=== PATIENT | female | born 1950 | race African-American/Black ===

== ENCOUNTER 2017-05-21 13:26 | Inpatient (IN) | payer MEDICARE, MEDICAID ==
[~2017-05-21] VITALS: Ht 160 cm; Wt 127.6 kg
[~2017-05-21 13:26] MED LIST: ACET325C PO; ALEN70TA3 PO; APIX5TAB PO; ASPI-1158 PO; ATROV INH; CHOL400T15 PO; DIGL PO; DOCU-138 PO; FLUT1DIS3 INH; FURO80TA3 PO; HYDR-523 PO; MOME13HF2 INH; NOVOLIN SUBCUT; RANI150T7 PO
[2017-05-21] MEDS ORDERED: GABA-290 PO (13:43)
[2017-05-21] MEDS ORDERED: ZOLP5TAB8 PO (13:43)
[2017-05-21] MEDS ORDERED: CARV12.545 PO (13:43)
[2017-05-21] MEDS ORDERED: APIX5TAB PO (13:43)
[2017-05-21] MEDS: IBUPROFEN 600MG TABLET PO ONE ×2 (14:56→15:19)
[2017-05-21] MEDS ORDERED: ACETAMINOPHEN 325MG TABLET PO ONE (15:15)
[2017-05-21 16:32] LABS: BASOPHILS % 0.4 % (0.0-2.0); EOSINOPHILS % 4.3 % (0.0-5.0); LYMPHOCYTES % 11.3 % (20.0-50.0); MEAN CORPUSCULAR HEMOGLOBIN 26.5 pg (28.0-32.0); MEAN CORPUSCULAR VOLUME 83.2 fL (81.0-99.0); MEAN PLATELET VOLUME 7.3 fl (7.4-10.4); MONOCYTES % 4.9 % (2.0-8.0); NEUTROPHILS % 79.1 % (40.0-76.0); PLATELET 310 x1000/uL (130-400); RED BLOOD CELL COUNT 2.19 mill/uL (4.2-5.4); RED CELL DISTRIBUTION WIDTH 14.6 % (11.6-14.6)
[2017-05-21 16:38] LABS: HEMATOCRIT. 18.2 % (36.0-48.0); HEMOGLOBIN. 5.8 g/dL (12.0-16.0); PROTHROMBIN TIME 10.7 sec (9.4-11.6)
[2017-05-21] MEDS ORDERED: SODIUM CHLORIDE 0.9% 1,000 ML IV ONE (17:40)
[2017-05-21] MEDS ORDERED: SODIUM CHLORIDE 0.9% 1,000 ML IV SCH (17:40)
[2017-05-21] MEDS ORDERED: ACETAMINOPHEN 325MG TABLET PO PRN ×2 (17:45→23:45)
[2017-05-21] MEDS ORDERED: IBUPROFEN 600MG TABLET PO PRN (17:45)
[2017-05-21 21:30] VITALS: BP 145/44
[2017-05-21 21:40] VITALS: BP 145/44
[2017-05-21] MEDS ORDERED: KDUR20 PO (22:33)
[2017-05-21] MEDS ORDERED: INSU100I28 SQ (22:33)
[2017-05-21] MEDS ORDERED: DEXTROSE 50% WATER 50ML SYRINGE IV PRN (23:15)
[2017-05-21] MEDS ORDERED: CLONIDINE 0.1MG TABLET PO PRN (23:15)
[2017-05-21] MEDS ORDERED: IPRATROPIUM/ALBUTEROL 0.5-3(2.5)MG/3ML NEB HHN PRN (23:15)
[2017-05-21] MEDS ORDERED: ACETAMINOPHEN 325 MG PO PRN (23:30)
[2017-05-21] MEDS: HYDROCODONE/ACETAMINOPHEN 5/325MG TABLET PO PRN (23:53)
[2017-05-22] VITALS (15 sets, daily range): BP systolic 100–139; BP diastolic 41–57
[2017-05-22] MEDS: ZOLPIDEM TARTRATE 5MG TABLET PO PRN (00:53)
[2017-05-22] MEDS: MORPHINE SULFATE 4 MG/ML CPJ (NOT FOR IM USE) IV PRN (04:34)
[2017-05-22] MEDS: INSULIN LISPRO 100 UNITS/ML SUBCUT SCH ×4 (06:43→21:23)
[2017-05-22] MEDS: BLOOD SUGAR DIAGNOSTIC STRIP TEST SCH ×4 (06:43→20:27)
[2017-05-22] MEDS: FUROSEMIDE 80MG TABLET PO SCH ×2 (06:43→18:00)
[2017-05-22] MEDS ORDERED: [UNRECOGNIZED DRUG - OTHER] SQ SCH (09:00)
[2017-05-22] MEDS ORDERED: CHOLECALCIFEROL 400 UNIT PO SCH (09:00)
[2017-05-22] MEDS ORDERED: DIGOXIN PO SCH (09:00)
[2017-05-22] MEDS ORDERED: FAMOTIDINE 20MG TABLET PO SCH (09:00)
[2017-05-22] MEDS ORDERED: INSULIN GLARGINE HUM REC ANLOG 35 UNIT SQ SCH (09:00)
[2017-05-22] MEDS: POTASSIUM CHLORIDE 20MEQ TABLET SR PO SCH ×2 (09:02→17:00)
[2017-05-22] MEDS: CARVEDILOL 12.5MG TABLET PO SCH ×2 (09:03→20:26)
[2017-05-22] MEDS: FAMOTIDINE 20MG TABLET PO SCH (09:03)
[2017-05-22 09:36] LABS: BASOPHILS % 0.5 % (0.0-2.0); EOSINOPHILS % 5.2 % (0.0-5.0); HEMATOCRIT. 23.4 % (36.0-48.0); LYMPHOCYTES % 16.3 % (20.0-50.0); MEAN CORPUSCULAR VOLUME 84.8 fL (81.0-99.0); MEAN PLATELET VOLUME 7.5 fl (7.4-10.4); MONOCYTES % 7.1 % (2.0-8.0); NEUTROPHILS % 70.9 % (40.0-76.0); PLATELET 313 x1000/uL (130-400); RED BLOOD CELL COUNT 2.76 mill/uL (4.2-5.4); RED CELL DISTRIBUTION WIDTH 14.4 % (11.6-14.6)
[2017-05-22] MEDS: INSULIN DETEMIR UD 100 UNITS/ML SYR SUBCUT SCH ×2 (09:52→21:24)
[2017-05-22] MEDS: CHOLECALCIFEROL (VIT D3) 400 UNIT TABLET PO SCH ×2 (10:00→17:00)
[2017-05-22 10:41] LABS: HEMOGLOBIN. 7.7 g/dL (12.0-16.0)
[2017-05-22 12:17] LABS: HEMATOCRIT 25.6 % (36.0-48.0)
[2017-05-22] MEDS: DIGOXIN 250MCG TABLET PO SCH (18:56)
[2017-05-22 20:00] LABS: HEMATOCRIT 24.4 % (36.0-48.0); HEMOGLOBIN 8.1 g/dL (12.0-16.0)
[2017-05-22] MEDS: GABAPENTIN 300MG CAPSULE PO SCH (20:26)
[2017-05-22] MEDS: HYDROCODONE/ACETAMINOPHEN 5/325MG TABLET PO PRN (20:27)
[2017-05-22] MEDS ORDERED: MEDICATION NOT ON FORMULARY EA (Gabapentin 600 MG) PO SCH (21:00)
[2017-05-23] VITALS (10 sets, daily range): BP systolic 102–146; BP diastolic 40–74
[2017-05-23 00:54] LABS: HEMATOCRIT 22.1 % (36.0-48.0); HEMOGLOBIN 7.4 g/dL (12.0-16.0)
[2017-05-23] MEDS: MORPHINE SULFATE 4 MG/ML CPJ (NOT FOR IM USE) IV PRN ×2 (05:47→10:58)
[2017-05-23] MEDS: BLOOD SUGAR DIAGNOSTIC STRIP TEST SCH ×4 (05:50→21:00)
[2017-05-23] MEDS: INSULIN LISPRO 100 UNITS/ML SUBCUT SCH ×4 (06:28→22:48)
[2017-05-23] MEDS: FUROSEMIDE 80MG TABLET PO SCH ×2 (06:28→17:51)
[2017-05-23 07:56] LABS: HEMATOCRIT 22.1 % (36.0-48.0); HEMOGLOBIN 7.5 g/dL (12.0-16.0)
[2017-05-23] MEDS: HYDROCODONE/ACETAMINOPHEN 5/325MG TABLET PO PRN (08:05)
[2017-05-23] MEDS ORDERED: CEFAZOLIN 1000MG PREMIX 0 ML IV ONE (09:05)
[2017-05-23] MEDS ORDERED: FENTANYL CITRATE/PF 50MCG/ML 2ML VIAL ONE (09:11)
[2017-05-23] MEDS: FAMOTIDINE 20MG TABLET PO SCH (09:50)
[2017-05-23] MEDS: CHOLECALCIFEROL (VIT D3) 400 UNIT TABLET PO SCH ×2 (09:50→17:51)
[2017-05-23] MEDS: POTASSIUM CHLORIDE 20MEQ TABLET SR PO SCH ×2 (09:51→17:51)
[2017-05-23] MEDS: CARVEDILOL 12.5MG TABLET PO SCH ×2 (09:54→22:47)
[2017-05-23] MEDS: INSULIN DETEMIR UD 100 UNITS/ML SYR SUBCUT SCH ×2 (10:57→22:49)
[2017-05-23 12:21] LABS: HEMATOCRIT 25.3 % (36.0-48.0); HEMOGLOBIN 8.5 g/dL (12.0-16.0)
[2017-05-23] MEDS: DIGOXIN 250MCG TABLET PO SCH (17:51)
[2017-05-23 19:49] LABS: CLARITY URINE CLOUDY (CLEAR); COLOR URINE YELLOW (YELLOW); GLUCOSE URINE NEGATIVE (NEGATIVE); KETONES URINE NEGATIVE (NEGATIVE); LEUKOCYTE ESTERASE URINE 2+ (NEGATIVE); NITRITE URINE POSITIVE (NEGATIVE); OCCULT BLOOD URINE 1+ (NEGATIVE); PH URINE 5.5 (4.5-8.0); PROTEIN URINE TRACE (NEGATIVE); SPECIFIC GRAVITY URINE 1.009 (1.005-1.030); UROBILINOGEN URINE 0.2 E.U./dL (0.2-1.0)
[2017-05-23 21:55] LABS: HEMATOCRIT 29.2 % (36.0-48.0); HEMOGLOBIN 9.6 g/dL (12.0-16.0)
[2017-05-23] MEDS: GABAPENTIN 300MG CAPSULE PO SCH (22:47)
[2017-05-23] MEDS: ZOLPIDEM TARTRATE 5MG TABLET PO PRN (22:52)
[2017-05-24 02:29] LABS: HEMATOCRIT 25.9 % (36.0-48.0); HEMOGLOBIN 8.5 g/dL (12.0-16.0)
[2017-05-24 03:43] VITALS: BP 133/45
[2017-05-24 04:00] VITALS: BP 124/58
[2017-05-24] MEDS: MORPHINE SULFATE 4 MG/ML CPJ (NOT FOR IM USE) IV PRN ×3 (04:38→21:30)
[2017-05-24] MEDS: INSULIN LISPRO 100 UNITS/ML SUBCUT SCH ×4 (06:20→21:28)
[2017-05-24] MEDS: BLOOD SUGAR DIAGNOSTIC STRIP TEST SCH ×4 (06:20→21:22)
[2017-05-24] MEDS: FUROSEMIDE 80MG TABLET PO SCH ×2 (06:20→17:15)
[2017-05-24 08:00] VITALS: BP 124/61
[2017-05-24] MEDS: POTASSIUM CHLORIDE 20MEQ TABLET SR PO SCH ×2 (08:50→17:15)
[2017-05-24] MEDS: FAMOTIDINE 20MG TABLET PO SCH (08:51)
[2017-05-24] MEDS: CHOLECALCIFEROL (VIT D3) 400 UNIT TABLET PO SCH ×2 (08:51→17:15)
[2017-05-24] MEDS: CARVEDILOL 12.5MG TABLET PO SCH ×2 (08:52→21:26)
[2017-05-24] MEDS: INSULIN DETEMIR UD 100 UNITS/ML SYR SUBCUT SCH ×2 (09:59→21:28)
[2017-05-24 12:00] VITALS: BP 114/41
[2017-05-24 16:00] VITALS: BP 125/59
[2017-05-24] MEDS: DIGOXIN 250MCG TABLET PO SCH (18:44)
[2017-05-24 20:00] VITALS: BP 125/48
[2017-05-24] MEDS: GABAPENTIN 300MG CAPSULE PO SCH (21:26)
[2017-05-25] VITALS (7 sets, daily range): BP systolic 107–141; BP diastolic 35–61
[2017-05-25] MEDS: MORPHINE SULFATE 4 MG/ML CPJ (NOT FOR IM USE) IV PRN (06:08)
[2017-05-25] MEDS: BLOOD SUGAR DIAGNOSTIC STRIP TEST SCH ×4 (06:15→21:37)
[2017-05-25] MEDS: INSULIN LISPRO 100 UNITS/ML SUBCUT SCH ×4 (06:15→21:43)
[2017-05-25] MEDS: FUROSEMIDE 80MG TABLET PO SCH ×2 (06:15→16:59)
[2017-05-25] MEDS: POTASSIUM CHLORIDE 20MEQ TABLET SR PO SCH ×2 (09:18→16:59)
[2017-05-25] MEDS: FAMOTIDINE 20MG TABLET PO SCH (09:18)
[2017-05-25] MEDS: CHOLECALCIFEROL (VIT D3) 400 UNIT TABLET PO SCH ×2 (09:18→16:59)
[2017-05-25] MEDS: CARVEDILOL 12.5MG TABLET PO SCH ×2 (09:19→21:32)
[2017-05-25] MEDS: INSULIN DETEMIR UD 100 UNITS/ML SYR SUBCUT SCH ×2 (10:00→21:43)
[2017-05-25] MEDS: DIGOXIN 250MCG TABLET PO SCH (17:50)
[2017-05-25] MEDS: GABAPENTIN 300MG CAPSULE PO SCH (21:31)
[2017-05-26] VITALS: BP 109/47
== END 2017-05-26 00:53 | disposition home or self-care (01) | DRG 760 ==
LOC: ER 13:38 → 5WST 17:26 → ENRESERV 19:38
PROVIDERS: ADMIT Internal Medicine; ATTEND Internal Medicine
PROC: 30233N1 Transfusion of Nonautologous Red Blood Cells into Peripheral Vein, Percutaneous Approach (ICD-10-PCS; principal; 2017-05-22)
DX: N92.0 Excessive and frequent menstruation with regular cycle (principal); D62 Acute posthemorrhagic anemia; I48.2 Chronic atrial fibrillation; I11.0 Hypertensive heart disease with heart failure; I50.9 Heart failure, unspecified; Z68.42 Body mass index [BMI] 45.0-49.9, adult; E11.9 Type 2 diabetes mellitus without complications; J44.9 Chronic obstructive pulmonary disease, unspecified; E66.9 Obesity, unspecified; G47.30 Sleep apnea, unspecified; W22.09XA Striking against other stationary object, initial encounter; M19.90 Unspecified osteoarthritis, unspecified site; Z79.82 Long term (current) use of aspirin; Z79.4 Long term (current) use of insulin; Z79.899 Other long term (current) drug therapy; Z79.1 Long term (current) use of non-steroidal anti-inflammatories (NSAID); Z90.49 Acquired absence of other specified parts of digestive tract
CPT/HCPCS: 36415; 70450; 76856; 80048; 81001; 82962; 85014; 85018; 85025; 85610; 86850; 86900; 86920; 93005; 94640; 99285; J0690; J1815; J2270; J3010; J7030; J7040; P9016; A4315

== ENCOUNTER 2017-06-18 18:57 | Emergency (ER) | payer MEDICARE, MEDICAID ==
[~2017-06-18] VITALS: Ht 165.1 cm; Wt 152.0 kg
[~2017-06-18 18:57] MED LIST changes: +CARV12.545 PO; +GABA-290 PO; +INSU100I28 SQ; +KDUR20 PO; +ZOLP5TAB8 PO
[2017-06-19 01:05] LABS: BASOPHILS % 0.5 % (0.0-2.0); HEMOGLOBIN. 7.9 g/dL (12.0-16.0); MEAN CORPUSCULAR HEMOGLOBIN 27.2 pg (28.0-32.0); MEAN CORPUSCULAR VOLUME 82.5 fL (81.0-99.0); MONOCYTES % 4.2 % (2.0-8.0); NEUTROPHILS % 77.3 % (40.0-76.0); PLATELET 290 x1000/uL (130-400); RED BLOOD CELL COUNT 2.91 mill/uL (4.2-5.4); RED CELL DISTRIBUTION WIDTH 15.6 % (11.6-14.6)
[2017-06-19 01:15] LABS: PARTIAL THROMBOPLASTIN TIME 26.7 sec (23.4-31.0); PROTHROMBIN TIME 10.5 sec (9.4-11.6)
[2017-06-19 01:22] LABS: CARBON DIOXIDE 30 mEq/L (21-32); CHLORIDE 103 mEq/L (98-107); TROPONIN I < 0.02 ng/mL (0.00-0.04)
[2017-06-19] MEDS ORDERED: ACETAMINOPHEN 500MG TABLET PO ONE (04:45)
[2017-06-19 11:21] VITALS: BP 124/60
== END 2017-06-19 11:26 | disposition home or self-care (01) ==
LOC: ER 18:57
DX: D53.9 Nutritional anemia, unspecified (principal); R03.0 Elevated blood-pressure reading, without diagnosis of hypertension; I50.9 Heart failure, unspecified; I42.9 Cardiomyopathy, unspecified; M79.89 Other specified soft tissue disorders; R94.4 Abnormal results of kidney function studies; E11.9 Type 2 diabetes mellitus without complications; J44.9 Chronic obstructive pulmonary disease, unspecified; E66.01 Morbid (severe) obesity due to excess calories; Z68.43 Body mass index [BMI] 50.0-59.9, adult; Z79.4 Long term (current) use of insulin; Z79.899 Other long term (current) drug therapy
CPT/HCPCS: 36415; 71010; 80053; 83690; 83880; 84484; 85025; 85610; 85730; 93005; 99285

== ENCOUNTER 2018-08-26 18:27 | Inpatient (IN) | payer MEDICARE, MEDICAID ==
[~2018-08-26] VITALS: Ht 160 cm; Wt 115.3 kg
[2018-08-26 20:12] LABS: BASOPHILS % 0.8 % (0.0-2.0); EOSINOPHILS % 4.5 % (0.0-5.0); HEMATOCRIT. 30.6 % (36.0-48.0); HEMOGLOBIN. 9.9 g/dL (12.0-16.0); LYMPHOCYTES % 22.7 % (20.0-50.0); MEAN CORPUSCULAR HEMOGLOBIN 28.4 pg (28.0-32.0); MEAN CORPUSCULAR VOLUME 88.2 fL (81.0-99.0); MONOCYTES % 4.3 % (2.0-8.0); NEUTROPHILS % 67.7 % (40.0-76.0); PLATELET 221 x1000/uL (130-400); RED BLOOD CELL COUNT 3.47 mill/uL (4.2-5.4); RED CELL DISTRIBUTION WIDTH 14.2 % (11.6-14.6)
[2018-08-26 20:14] LABS: CHLORIDE 108 mEq/L (98-107)
[2018-08-26 20:18] LABS: PARTIAL THROMBOPLASTIN TIME 21.1 sec (23.4-31.0); PROTHROMBIN TIME 9.6 sec (9.1-11.1)
[2018-08-26 20:24] LABS: B-HCG QUANTITATIVE < 1 mIU/mL (<3)
[2018-08-26 22:30] LABS: CLARITY URINE CLOUDY (CLEAR); COLOR URINE YELLOW (YELLOW); KETONES URINE NEGATIVE (NEGATIVE); LEUKOCYTE ESTERASE URINE 2+ (NEGATIVE); NITRITE URINE POSITIVE (NEGATIVE); OCCULT BLOOD URINE 3+ (NEGATIVE); PROTEIN URINE NEGATIVE (NEGATIVE); SPECIFIC GRAVITY URINE 1.006 (1.005-1.030); UROBILINOGEN URINE 0.2 E.U./dL (0.2-1.0)
[2018-08-27] MEDS ORDERED: SODIUM POLYSTYRENE SULFONATE 15 G/60 ML BOT PO ONE (00:45)
[2018-08-27] MEDS ORDERED: SODIUM BICARBONATE 8.4% 1 MEQ/ML 50ML SYR IV ONE (00:45)
[2018-08-27] MEDS ORDERED: ALBUTEROL (0.5%) 2.5MG/0.5ML NEB HHN ONE (00:45)
[2018-08-27] MEDS ORDERED: CALCIUM GLUCONATE 100MG/ML 10ML VIAL IV ONE (00:45)
[2018-08-27] MEDS ORDERED: CEFTRIAXONE 1 G PREMIX 50 ML IV ONE (00:45)
[2018-08-27 04:00] VITALS: BP 146/45
[2018-08-27 04:07] VITALS: BP 145/46
[2018-08-27] MEDS ORDERED: METF-815 PO (05:14)
[2018-08-27] MEDS ORDERED: INDO50CA15 PO (05:14)
[2018-08-27] MEDS ORDERED: FERR325T6 PO (05:14)
[2018-08-27] MEDS ORDERED: TRAM-529 PO (05:14)
[2018-08-27] MEDS ORDERED: QUET25TA PO (05:14)
[2018-08-27] MEDS ORDERED: ONDANSETRON HCL 4MG/2ML INJ IV PRN (05:45)
[2018-08-27] MEDS ORDERED: DEXTROSE 50% WATER 50ML SYRINGE IV PRN (05:45)
[2018-08-27] MEDS ORDERED: GUAIFENESIN 200MG/10ML SUGAR FREE UDC PO PRN (05:45)
[2018-08-27] MEDS ORDERED: CLONIDINE 0.1MG TABLET PO PRN (05:45)
[2018-08-27] MEDS ORDERED: DOCUSATE SODIUM 100MG CAPSULE PO PRN ×2 (05:45→18:15)
[2018-08-27] MEDS ORDERED: ACETAMINOPHEN 325MG TABLET PO PRN (05:45)
[2018-08-27] MEDS ORDERED: MAGNESIUM/ALUMINUM HYDROXIDE/SIMETHICONE 30ML UDC PO PRN (05:45)
[2018-08-27] MEDS: BLOOD SUGAR DIAGNOSTIC STRIP TEST SCH ×4 (06:29→20:53)
[2018-08-27] MEDS: INSULIN LISPRO 100 UNITS/ML SUBCUT SCH ×4 (06:30→20:54)
[2018-08-27 08:00] VITALS: BP 135/57
[2018-08-27] MEDS ORDERED: LEVOFLOXACIN 500MG PREMIX 100 ML IV NR (08:00)
[2018-08-27] MEDS: CARVEDILOL 12.5MG TABLET PO SCH ×2 (08:57→20:53)
[2018-08-27] MEDS ORDERED: FUROSEMIDE 40MG TABLET PO SCH (09:00)
[2018-08-27 12:00] VITALS: BP 120/50
[2018-08-27] MEDS ORDERED: DIPHENHYDRAMINE 50MG/ML VIAL IV PRN (18:15)
[2018-08-27 20:00] VITALS: BP 128/55
[2018-08-27] MEDS: IPRATROPIUM/ALBUTEROL 0.5-3(2.5)MG/3ML NEB HHN SCH (21:14)
[2018-08-27] MEDS: BUDESONIDE 0.5MG/2ML NEB HHN SCH (21:14)
[2018-08-28 00:03] VITALS: BP 144/64
[2018-08-28] MEDS: HYDROCODONE/ACETAMINOPHEN 5/325MG TABLET PO PRN (00:09)
[2018-08-28] MEDS: IPRATROPIUM/ALBUTEROL 0.5-3(2.5)MG/3ML NEB HHN SCH ×4 (02:28→20:27)
[2018-08-28 03:57] VITALS: BP 122/63
[2018-08-28] MEDS: BLOOD SUGAR DIAGNOSTIC STRIP TEST SCH ×4 (06:29→21:00)
[2018-08-28] MEDS: INSULIN LISPRO 100 UNITS/ML SUBCUT SCH ×4 (06:29→21:06)
[2018-08-28 07:11] LABS: BASOPHILS % 0.4 % (0.0-2.0); EOSINOPHILS % 4.2 % (0.0-5.0); LYMPHOCYTES % 17.5 % (20.0-50.0); MEAN CORPUSCULAR HEMOGLOBIN 28.4 pg (28.0-32.0); MEAN CORPUSCULAR VOLUME 88.1 fL (81.0-99.0); MONOCYTES % 4.2 % (2.0-8.0); NEUTROPHILS % 73.7 % (40.0-76.0); PLATELET 229 x1000/uL (130-400); RED BLOOD CELL COUNT 3.52 mill/uL (4.2-5.4); RED CELL DISTRIBUTION WIDTH 14.3 % (11.6-14.6)
[2018-08-28 07:56] LABS: CHLORIDE 104 mEq/L (98-107)
[2018-08-28 08:00] VITALS: BP 133/62
[2018-08-28 08:04] LABS: T4 FREE 1.37 ng/dL (0.76-1.46)
[2018-08-28 08:08] LABS: LDL CHOLESTEROL 145 mg/dL (5-100)
[2018-08-28 08:11] LABS: HDL CHOLESTEROL 34 mg/dL (40-59)
[2018-08-28] MEDS: LEVOFLOXACIN 250MG PREMIX 50 ML IV SCH (08:36)
[2018-08-28] MEDS: FUROSEMIDE 40MG TABLET PO SCH (08:37)
[2018-08-28] MEDS: CARVEDILOL 12.5MG TABLET PO SCH ×2 (08:38→20:58)
[2018-08-28] MEDS: BUDESONIDE 0.5MG/2ML NEB HHN SCH ×2 (08:53→20:27)
[2018-08-28] MEDS: IPRATROPIUM/ALBUTEROL 0.5-3(2.5)MG/3ML NEB INH PRN (11:33)
[2018-08-28 16:00] VITALS: BP 130/63
[2018-08-28 20:00] VITALS: BP 127/64
[2018-08-28] MEDS ORDERED: ATORVASTATIN CALCIUM 20MG TABLET PO SCH (21:00)
[2018-08-29] VITALS: BP 115/58
[2018-08-29] MEDS ORDERED: DEXT 5%/0.45% NACL 1000ML 1,000 ML IV SCH
[2018-08-29] MEDS: IPRATROPIUM/ALBUTEROL 0.5-3(2.5)MG/3ML NEB INH PRN ×2 (01:51→05:30)
[2018-08-29] MEDS: HYDROCODONE/ACETAMINOPHEN 5/325MG TABLET PO PRN (03:23)
[2018-08-29 04:00] VITALS: BP 145/71
[2018-08-29] MEDS: BLOOD SUGAR DIAGNOSTIC STRIP TEST SCH ×2 (07:10→12:16)
[2018-08-29] MEDS: INSULIN LISPRO 100 UNITS/ML SUBCUT SCH ×2 (07:24→12:28)
[2018-08-29 07:30] VITALS: BP 129/62
[2018-08-29] MEDS: BUDESONIDE 0.5MG/2ML NEB HHN SCH (08:05)
[2018-08-29] MEDS: IPRATROPIUM/ALBUTEROL 0.5-3(2.5)MG/3ML NEB HHN SCH ×2 (08:05→13:47)
[2018-08-29 08:40] LABS: HEMATOCRIT 30.9 % (36.0-48.0); HEMOGLOBIN 10.2 g/dL (12.0-16.0); MEAN CORPUSCULAR HEMOGLOBIN 28.8 pg (28.0-32.0); MEAN CORPUSCULAR VOLUME 87.3 fL (81.0-99.0); PLATELET 215 x1000/uL (130-400); RED BLOOD CELL COUNT 3.54 mill/uL (4.2-5.4); RED CELL DISTRIBUTION WIDTH 14.2 % (11.6-14.6)
[2018-08-29] MEDS: LEVOFLOXACIN 250MG PREMIX 50 ML IV SCH (08:53)
[2018-08-29] MEDS: FUROSEMIDE 40MG TABLET PO SCH ×2 (08:59→12:28)
[2018-08-29] MEDS: CARVEDILOL 12.5MG TABLET PO SCH ×2 (08:59→12:28)
[2018-08-29 11:35] VITALS: BP 134/79
[2018-08-29] MEDS ORDERED: INSULIN GLARGINE UD 100 UNITS/ML SYR SUBCUT NR (12:00)
[2018-08-29 15:02] VITALS: BP 120/52
[2018-08-29 16:00] VITALS: BP 138/49
== END 2018-08-29 17:32 | disposition home or self-care (01) | DRG 682 ==
LOC: ER 18:27 → 8WST 08-27 01:53 → ENRESERV 08-27 02:14
PROVIDERS: ADMIT Internal Medicine; ATTEND Internal Medicine
DX: N17.9 Acute kidney failure, unspecified (principal); I50.23 Acute on chronic systolic (congestive) heart failure; N39.0 Urinary tract infection, site not specified; D62 Acute posthemorrhagic anemia; E44.1 Mild protein-calorie malnutrition; E66.2 Morbid (severe) obesity with alveolar hypoventilation; Z68.42 Body mass index [BMI] 45.0-49.9, adult; I31.3 Pericardial effusion (noninflammatory); J44.1 Chronic obstructive pulmonary disease with (acute) exacerbation; I13.0 Hypertensive heart and chronic kidney disease with heart failure and stage 1 through stage 4 chronic kidney disease, or unspecified chronic kidney disease; N93.9 Abnormal uterine and vaginal bleeding, unspecified; N84.0 Polyp of corpus uteri; M19.90 Unspecified osteoarthritis, unspecified site; E11.22 Type 2 diabetes mellitus with diabetic chronic kidney disease; E87.5 Hyperkalemia; E11.65 Type 2 diabetes mellitus with hyperglycemia; E78.5 Hyperlipidemia, unspecified; N18.9 Chronic kidney disease, unspecified; Z91.19 Patient's noncompliance with other medical treatment and regimen; Z99.81 Dependence on supplemental oxygen; Z79.82 Long term (current) use of aspirin; Z79.4 Long term (current) use of insulin; Z79.899 Other long term (current) drug therapy; Z90.49 Acquired absence of other specified parts of digestive tract; Z98.891 History of uterine scar from previous surgery
CPT/HCPCS: 36415; 71045; 76830; 76856; 80048; 80061; 82962; 83036; 84439; 84443; 84702; 85027; 86304; 86850; 86900; 87077; 87186; 93306; 93970; 94640; 96374; 96375; 97162; 97530; 99285; A6261; J0610; J0696; J1815; J1956; J2405; J3490; J7040; J7620; J7626

== ENCOUNTER 2019-08-10 16:44 | Inpatient (IN) | payer MEDICARE, MEDICAID ==
[~2019-08-10] VITALS: Ht 162.6 cm; Wt 99.8 kg
[~2019-08-10 16:44] MED LIST changes: -APIX5TAB PO; +FERR325T6 PO; +INDO50CA98 PO; +METF-815 PO; +QUET25TA PO; +TRAM-529 PO
[2019-08-10] MEDS ORDERED: ALBUTEROL (0.083%) 2.5MG/3ML NEB HHN STA (17:37)
[2019-08-10] MEDS ORDERED: IPRATROPIUM BROMIDE (0.02%) 0.5MG/2.5ML NEB HHN STA (17:37)
[2019-08-10 18:20] LABS: BASOPHILS % 0.2 % (0.0-2.0); CHLORIDE 109 mEq/L (98-107); EOSINOPHILS % 3.3 % (0.0-5.0); HEMATOCRIT. 25.1 % (36.0-48.0); HEMOGLOBIN. 8.1 g/dL (12.0-16.0); LYMPHOCYTES % 11.3 % (20.0-50.0); MEAN CORPUSCULAR VOLUME 89.7 fL (81.0-99.0); MEAN PLATELET VOLUME 7.8 fl (7.4-10.4); MONOCYTES % 3.4 % (2.0-8.0); NEUTROPHILS % 81.8 % (40.0-76.0); PLATELET 221 x1000/uL (130-400); RED CELL DISTRIBUTION WIDTH 14.8 % (11.6-14.6)
[2019-08-10] MEDS ORDERED: FUROSEMIDE 20MG/2ML VIAL IVP ONE (19:45)
[2019-08-10] MEDS ORDERED: IPRATROPIUM/ALBUTEROL 0.5-3(2.5)MG/3ML NEB HHN PRN (21:45)
[2019-08-10] MEDS ORDERED: ONDANSETRON HCL 4MG/2ML INJ IV PRN (21:45)
[2019-08-10] MEDS ORDERED: DEXTROSE 50% WATER 50ML SYRINGE IV PRN (21:45)
[2019-08-10] MEDS ORDERED: CLONIDINE 0.1MG TABLET PO PRN (21:45)
[2019-08-10 22:42] LABS: CLARITY URINE CLOUDY (CLEAR); COLOR URINE YELLOW (YELLOW); KETONES URINE NEGATIVE (NEGATIVE); LEUKOCYTE ESTERASE URINE 3+ (NEGATIVE); NITRITE URINE POSITIVE (NEGATIVE); OCCULT BLOOD URINE 1+ (NEGATIVE); PROTEIN URINE TRACE (NEGATIVE); SPECIFIC GRAVITY URINE 1.009 (1.005-1.030); UROBILINOGEN URINE 0.2 E.U./dL (0.2-1.0)
[2019-08-10] MEDS ORDERED: BUDESONIDE 0.5MG/2ML NEB HHN NR (22:46)
[2019-08-10] MEDS ORDERED: AZITHROMYCIN 500 MG TABLET PO SCH (22:47)
[2019-08-10 22:57] LABS: *AMPHETAMINES SCREEN URINE NEGATIVE (NEGATIVE); *BARBITURATES SCREEN URINE NEGATIVE (NEGATIVE); *BENZODIAZEPINES SCREEN URINE NEGATIVE (NEGATIVE); *COCAINE SCREEN URINE NEGATIVE (NEGATIVE); METHADONE URINE SCREEN NEGATIVE (NEGATIVE)
[2019-08-10 22:58] LABS: CANNABINOID URINE SCREEN NEGATIVE (NEGATIVE); OPIATES URINE SCREEN NEGATIVE (NEGATIVE); PHENCYCLIDINE URINE SCREEN NEGATIVE (NEGATIVE)
[2019-08-11] MEDS ORDERED: AZITHROMYCIN 500 MG TABLET PO SCH ×2 (02:06→08:07)
[2019-08-11] MEDS: BUDESONIDE 0.5MG/2ML NEB HHN SCH ×2 (08:15→22:10)
[2019-08-11] MEDS: AZITHROMYCIN 500 MG TABLET PO SCH (09:02)
[2019-08-11] MEDS: DOCUSATE SODIUM 100MG CAPSULE PO SCH ×2 (09:02→17:00)
[2019-08-11] MEDS: ACETAMINOPHEN 325MG TABLET PO PRN (09:03)
[2019-08-11] MEDS: FUROSEMIDE 40MG/4ML VIAL IVP SCH (09:03)
[2019-08-11] MEDS: INSULIN LISPRO 100 UNITS/ML SUBCUT SCH ×4 (09:25→21:58)
[2019-08-11 15:40] VITALS: BP 122/66
[2019-08-11 16:00] VITALS: BP 114/66
[2019-08-11] MEDS ORDERED: PNEUMOCOCCAL 23-VAL P-SAC VAC 0.5 ML IM ONE (17:15)
[2019-08-11] MEDS: GUAIFENESIN 600MG ER TABLET PO SCH ×2 (17:38→21:55)
[2019-08-11] MEDS: FERROUS SULFATE 325MG TABLET PO SCH ×3 (17:38→18:05)
[2019-08-11] MEDS: CEFTRIAXONE 1 G PREMIX 50 ML IV SCH (17:55)
[2019-08-11] MEDS ORDERED: INFLUENZA VIRUS VACCINE(AFLURIA) 0.5ML SYR IM ONE (18:00)
[2019-08-11 20:00] VITALS: BP 105/50
[2019-08-11] MEDS ORDERED: EPOETIN ALFA 10000UNITS/ML VIAL SUBCUT NR (21:00)
[2019-08-11] MEDS: IPRATROPIUM/ALBUTEROL 0.5-3(2.5)MG/3ML NEB HHN SCH (22:10)
[2019-08-12] VITALS (8 sets, daily range): BP systolic 120–153; BP diastolic 51–70
[2019-08-12] MEDS: IPRATROPIUM/ALBUTEROL 0.5-3(2.5)MG/3ML NEB HHN SCH ×6 (01:42→20:16)
[2019-08-12] MEDS: ACETAMINOPHEN 325MG TABLET PO PRN ×2 (05:46→23:10)
[2019-08-12] MEDS: BLOOD SUGAR DIAGNOSTIC STRIP TEST SCH ×4 (07:00→21:00)
[2019-08-12] MEDS: INSULIN LISPRO 100 UNITS/ML SUBCUT SCH ×4 (07:50→21:00)
[2019-08-12] MEDS: BUDESONIDE 0.5MG/2ML NEB HHN SCH ×2 (08:15→20:16)
[2019-08-12 08:57] LABS: BASOPHILS % 0.4 % (0.0-2.0); EOSINOPHILS % 2.6 % (0.0-5.0); HEMATOCRIT. 27.8 % (36.0-48.0); HEMOGLOBIN. 8.9 g/dL (12.0-16.0); LYMPHOCYTES % 7.8 % (20.0-50.0); MEAN CORPUSCULAR HEMOGLOBIN 28.9 pg (28.0-32.0); MEAN CORPUSCULAR VOLUME 90.3 fL (81.0-99.0); MONOCYTES % 3.4 % (2.0-8.0); NEUTROPHILS % 85.8 % (40.0-76.0); RED BLOOD CELL COUNT 3.08 mill/uL (4.2-5.4); RED CELL DISTRIBUTION WIDTH 15.4 % (11.6-14.6)
[2019-08-12] MEDS: GUAIFENESIN 600MG ER TABLET PO SCH ×2 (09:16→22:27)
[2019-08-12] MEDS: AZITHROMYCIN 500 MG TABLET PO SCH (09:16)
[2019-08-12] MEDS: DOCUSATE SODIUM 100MG CAPSULE PO SCH ×2 (09:16→18:11)
[2019-08-12] MEDS: FUROSEMIDE 40MG/4ML VIAL IVP SCH (09:16)
[2019-08-12] MEDS: FERROUS SULFATE 325MG TABLET PO SCH ×3 (09:17→18:11)
[2019-08-12 09:53] LABS: PHOSPHORUS 5.1 mg/dL (2.5-4.9)
[2019-08-12] MEDS: DILTIAZEM HCL 30MG TABLET PO SCH ×2 (15:00→15:45)
[2019-08-12] MEDS: CEFTRIAXONE 1 G PREMIX 50 ML IV SCH (15:05)
[2019-08-12 17:00] LABS: MEAN PLATELET VOLUME 8.7 fl (7.4-10.4); PLATELET 291 x1000/uL (130-400)
[2019-08-13] VITALS: BP 145/70
[2019-08-13] MEDS: IPRATROPIUM/ALBUTEROL 0.5-3(2.5)MG/3ML NEB HHN SCH ×4 (00:20→12:44)
[2019-08-13] MEDS ORDERED: SODIUM POLYSTYRENE SULFONATE 15 G/60 ML BOT PO NR (01:00)
[2019-08-13 04:00] VITALS: BP 140/72
[2019-08-13] MEDS: BLOOD SUGAR DIAGNOSTIC STRIP TEST SCH ×2 (06:25→12:19)
[2019-08-13] MEDS: ACETAMINOPHEN 325MG TABLET PO PRN (06:25)
[2019-08-13] MEDS: DILTIAZEM HCL 30MG TABLET PO SCH ×2 (06:25→13:51)
[2019-08-13 06:41] LABS: BASOPHILS % 0.5 % (0.0-2.0); EOSINOPHILS % 3.9 % (0.0-5.0); HEMATOCRIT. 27.1 % (36.0-48.0); HEMOGLOBIN. 8.6 g/dL (12.0-16.0); LYMPHOCYTES % 8.6 % (20.0-50.0); MEAN CORPUSCULAR HEMOGLOBIN 28.5 pg (28.0-32.0); MEAN CORPUSCULAR VOLUME 89.5 fL (81.0-99.0); MONOCYTES % 3.9 % (2.0-8.0); NEUTROPHILS % 83.1 % (40.0-76.0); PLATELET 232 x1000/uL (130-400); RED BLOOD CELL COUNT 3.03 mill/uL (4.2-5.4); RED CELL DISTRIBUTION WIDTH 14.8 % (11.6-14.6)
[2019-08-13 08:12] LABS: PHOSPHORUS 4.5 mg/dL (2.5-4.9)
[2019-08-13] MEDS: BUDESONIDE 0.5MG/2ML NEB HHN SCH (08:20)
[2019-08-13 08:21] VITALS: BP 146/67
[2019-08-13] MEDS: INSULIN LISPRO 100 UNITS/ML SUBCUT SCH ×2 (08:34→12:19)
[2019-08-13] MEDS: FERROUS SULFATE 325MG TABLET PO SCH ×2 (08:36→13:30)
[2019-08-13] MEDS: FUROSEMIDE 40MG/4ML VIAL IVP SCH (08:36)
[2019-08-13] MEDS: GUAIFENESIN 600MG ER TABLET PO SCH (08:36)
[2019-08-13] MEDS: DOCUSATE SODIUM 100MG CAPSULE PO SCH (08:36)
[2019-08-13] MEDS: AZITHROMYCIN 500 MG TABLET PO SCH (08:36)
[2019-08-13 12:19] VITALS: BP 136/61
[2019-08-13 13:10] VITALS: BP 136/61
== END 2019-08-13 15:09 | disposition home or self-care (01) | DRG 291 ==
LOC: ER 16:44 → 6WST 20:33 → ENRESERV 08-11 09:46
PROVIDERS: ADMIT Internal Medicine; ATTEND Internal Medicine
DX: I50.33 Acute on chronic diastolic (congestive) heart failure (principal); J96.21 Acute and chronic respiratory failure with hypoxia; N17.0 Acute kidney failure with tubular necrosis; I13.0 Hypertensive heart and chronic kidney disease with heart failure and stage 1 through stage 4 chronic kidney disease, or unspecified chronic kidney disease; E44.0 Moderate protein-calorie malnutrition; J44.1 Chronic obstructive pulmonary disease with (acute) exacerbation; N18.4 Chronic kidney disease, stage 4 (severe); N39.0 Urinary tract infection, site not specified; E66.01 Morbid (severe) obesity due to excess calories; E87.8 Other disorders of electrolyte and fluid balance, not elsewhere classified; I27.20 Pulmonary hypertension, unspecified; D64.9 Anemia, unspecified; E11.22 Type 2 diabetes mellitus with diabetic chronic kidney disease; K57.90 Diverticulosis of intestine, part unspecified, without perforation or abscess without bleeding; Z82.49 Family history of ischemic heart disease and other diseases of the circulatory system; Z90.49 Acquired absence of other specified parts of digestive tract; Z95.810 Presence of automatic (implantable) cardiac defibrillator; Z99.81 Dependence on supplemental oxygen; Z98.891 History of uterine scar from previous surgery; Z79.899 Other long term (current) drug therapy; Z79.82 Long term (current) use of aspirin; Z79.4 Long term (current) use of insulin; Z79.84 Long term (current) use of oral hypoglycemic drugs; Z71.3 Dietary counseling and surveillance; Z68.37 Body mass index [BMI] 37.0-37.9, adult
CPT/HCPCS: 36415; 71045; 74176; 80048; 80053; 80305; 81003; 82270; 82962; 83735; 83880; 84100; 84484; 85025; 87804; 90471; 90686; 93005; 93306; 94640; 96374; 96375; 96376; 99285; C1893; J0696; J0885; J1815; J1940; J2405; J7611; J7620; J7626

== ENCOUNTER 2019-08-16 08:01 | Emergency (ER) | payer MEDICARE, MEDICAID ==
[~2019-08-16] VITALS: Ht 167.6 cm; Wt 105.0 kg
[~2019-08-16 08:01] MED LIST changes: -ALEN70TA3 PO; -CHOL400T15 PO; -DOCU-138 PO; -HYDR-523 PO; -INDO50CA98 PO; -KDUR20 PO; -METF-815 PO; -RANI150T7 PO; -ZOLP5TAB8 PO
[2019-08-16] MEDS ORDERED: ONDANSETRON HCL 4MG/2ML INJ IV STA (08:35)
[2019-08-16] MEDS ORDERED: MORPHINE SULFATE 4 MG/ML CPJ (NOT FOR IM USE) IV STA (08:35)
[2019-08-16 09:43] LABS: EOSINOPHILS % 2.9 % (0.0-5.0); HEMATOCRIT. 29.3 % (36.0-48.0); HEMOGLOBIN. 9.2 g/dL (12.0-16.0); LYMPHOCYTES % 8.7 % (20.0-50.0); MEAN CORPUSCULAR VOLUME 89.4 fL (81.0-99.0); MEAN PLATELET VOLUME 7.8 fl (7.4-10.4); MONOCYTES % 4.2 % (2.0-8.0); NEUTROPHILS % 83.2 % (40.0-76.0); PLATELET 243 x1000/uL (130-400); RED BLOOD CELL COUNT 3.28 mill/uL (4.2-5.4); RED CELL DISTRIBUTION WIDTH 15.4 % (11.6-14.6)
[2019-08-16 09:48] LABS: CHLORIDE 103 mEq/L (98-107); INR 1.1; PROTHROMBIN TIME 10.8 sec (9.6-11.0)
[2019-08-16 11:06] LABS: CLARITY URINE CLOUDY (CLEAR); COLOR URINE YELLOW (YELLOW); KETONES URINE NEGATIVE (NEGATIVE); LEUKOCYTE ESTERASE URINE 2+ (NEGATIVE); NITRITE URINE NEGATIVE (NEGATIVE); OCCULT BLOOD URINE NEGATIVE (NEGATIVE); PROTEIN URINE NEGATIVE (NEGATIVE); SPECIFIC GRAVITY URINE 1.008 (1.005-1.030); UROBILINOGEN URINE 0.2 E.U./dL (0.2-1.0)
[2019-08-16] MEDS ORDERED: LEVOFLOXACIN 750MG PREMIX 150 ML IV ONE (11:45)
[2019-08-16 18:20] VITALS: BP 121/57
== END 2019-08-16 18:25 | disposition home or self-care (01) ==
LOC: ER 08:01
DX: N39.0 Urinary tract infection, site not specified (principal); I11.0 Hypertensive heart disease with heart failure; I50.9 Heart failure, unspecified; J44.9 Chronic obstructive pulmonary disease, unspecified; E11.9 Type 2 diabetes mellitus without complications; Z95.0 Presence of cardiac pacemaker; Z79.82 Long term (current) use of aspirin; Z90.49 Acquired absence of other specified parts of digestive tract
CPT/HCPCS: 36415; 74176; 80053; 81003; 83690; 85025; 85610; 87086; 96365; 96375; 99284; J1956; J2270; J2405

== ENCOUNTER 2019-11-10 04:15 | Inpatient (IN) | payer MEDICARE, MEDICAID ==
[~2019-11-10] VITALS: Ht 157.5 cm; Wt 124.7 kg
[2019-11-10 05:14] LABS: BASOPHILS % 0.3 % (0.0-2.0); EOSINOPHILS % 3.9 % (0.0-5.0); HEMATOCRIT. 25.5 % (36.0-48.0); HEMOGLOBIN. 8.5 g/dL (12.0-16.0); LYMPHOCYTES % 16.7 % (20.0-50.0); MEAN CORPUSCULAR HEMOGLOBIN 29.3 pg (28.0-32.0); MEAN PLATELET VOLUME 7.6 fl (7.4-10.4); MONOCYTES % 4.4 % (2.0-8.0); NEUTROPHILS % 74.7 % (40.0-76.0); PLATELET 208 x1000/uL (130-400); RED CELL DISTRIBUTION WIDTH 15.2 % (11.6-14.6)
[2019-11-10 05:29] LABS: PROTHROMBIN TIME 10.7 sec (9.6-11.0)
[2019-11-10 05:38] LABS: CLARITY URINE CLEAR (CLEAR); COLOR URINE YELLOW (YELLOW); KETONES URINE NEGATIVE (NEGATIVE); LEUKOCYTE ESTERASE URINE 2+ (NEGATIVE); NITRITE URINE NEGATIVE (NEGATIVE); OCCULT BLOOD URINE 1+ (NEGATIVE); PH URINE 6.5 (4.5-8.0); PROTEIN URINE TRACE (NEGATIVE); SPECIFIC GRAVITY URINE 1.007 (1.005-1.030); UROBILINOGEN URINE 0.2 E.U./dL (0.2-1.0)
[2019-11-10 05:42] LABS: CHLORIDE 106 mEq/L (98-107)
[2019-11-10 05:48] LABS: ETHANOL BLOOD < 10 mg/dL
[2019-11-10 05:52] LABS: *AMPHETAMINES SCREEN URINE NEGATIVE (NEGATIVE); *BARBITURATES SCREEN URINE NEGATIVE (NEGATIVE)
[2019-11-10 05:53] LABS: *BENZODIAZEPINES SCREEN URINE NEGATIVE (NEGATIVE); *COCAINE SCREEN URINE NEGATIVE (NEGATIVE); CANNABINOID URINE SCREEN NEGATIVE (NEGATIVE); METHADONE URINE SCREEN NEGATIVE (NEGATIVE); OPIATES URINE SCREEN NEGATIVE (NEGATIVE); PHENCYCLIDINE URINE SCREEN NEGATIVE (NEGATIVE)
[2019-11-10] MEDS ORDERED: CEFTRIAXONE 1 G PREMIX 50 ML IV ONE (07:15)
[2019-11-10] MEDS ORDERED: GUAIFENESIN 200MG/10ML SUGAR FREE UDC PO PRN (09:15)
[2019-11-10] MEDS ORDERED: NITROGLYCERIN 0.4MG TABLET SL SL PRN (09:15)
[2019-11-10] MEDS ORDERED: ZOLPIDEM TARTRATE 5MG TABLET PO PRN (09:15)
[2019-11-10] MEDS ORDERED: IPRATROPIUM/ALBUTEROL 0.5-3(2.5)MG/3ML NEB NEB PRN (09:15)
[2019-11-10] MEDS ORDERED: MAGNESIUM/ALUMINUM HYDROXIDE/SIMETHICONE 30ML UDC PO PRN (09:15)
[2019-11-10] MEDS ORDERED: DOCUSATE SODIUM 100MG CAPSULE PO PRN (09:15)
[2019-11-10] MEDS ORDERED: DEXTROSE 50% WATER 50ML SYRINGE IV PRN (09:30)
[2019-11-10] MEDS ORDERED: LEVOFLOXACIN 500MG PREMIX 100 ML IV NR (09:45)
[2019-11-10 10:45] LABS: T4 FREE 1.17 ng/dL (0.76-1.46)
[2019-11-10 10:56] LABS: DIGOXIN 2.4 ng/mL (0.9-2.0)
[2019-11-10 13:00] VITALS: BP_SYST 162; BP_DIAS 67; BP_DIAS 76
[2019-11-10] MEDS: INSULIN LISPRO 100 UNITS/ML SUBCUT SCH ×3 (13:10→21:00)
[2019-11-10] MEDS: BLOOD SUGAR DIAGNOSTIC STRIP TEST SCH ×3 (14:11→21:52)
[2019-11-10] MEDS: ACETAMINOPHEN 325MG TABLET PO PRN (14:17)
[2019-11-10] MEDS: CLONIDINE 0.1MG TABLET PO PRN (14:18)
[2019-11-10 15:42] LABS: CREATINE KINASE MB FRACTION 1.6 ng/mL (0.5-3.6)
[2019-11-10 16:00] VITALS: BP 161/76
[2019-11-10 17:18] LABS: TOTAL IRON BINDING CAPACITY 210 ug/dL (250-450)
[2019-11-10] MEDS: ENOXAPARIN 40MG/0.4ML SYR SUBCUT SCH (17:39)
[2019-11-10] MEDS: CARVEDILOL 12.5MG TABLET PO SCH (17:40)
[2019-11-10] MEDS ORDERED: DIGOXIN 250MCG TABLET PO SCH (18:00)
[2019-11-10 20:00] VITALS: BP 109/52
[2019-11-10] MEDS: FAMOTIDINE 20MG TABLET PO SCH (21:53)
[2019-11-10] MEDS: ASCORBIC ACID 500 MG TABLET PO SCH (21:54)
[2019-11-10] MEDS: TRAMADOL 50MG TABLET PO PRN (21:59)
[2019-11-11] VITALS: BP 138/81
[2019-11-11 01:25] LABS: CREATINE KINASE MB FRACTION 2.6 ng/mL (0.5-3.6)
[2019-11-11 04:00] VITALS: BP 172/79
[2019-11-11] MEDS: TRAMADOL 50MG TABLET PO PRN ×2 (04:14→15:52)
[2019-11-11] MEDS: ONDANSETRON HCL 4MG/2ML INJ IV PRN ×2 (04:26→10:32)
[2019-11-11] MEDS: CARVEDILOL 12.5MG TABLET PO SCH ×2 (05:50→17:34)
[2019-11-11] MEDS: BLOOD SUGAR DIAGNOSTIC STRIP TEST SCH ×4 (07:02→21:00)
[2019-11-11] MEDS: FAMOTIDINE 20MG TABLET PO SCH ×2 (07:04→11:49)
[2019-11-11 07:42] LABS: BASOPHILS % 0.7 % (0.0-2.0); EOSINOPHILS % 3.6 % (0.0-5.0); HEMOGLOBIN. 8.1 g/dL (12.0-16.0); LYMPHOCYTES % 12.1 % (20.0-50.0); MEAN CORPUSCULAR HEMOGLOBIN 29.2 pg (28.0-32.0); MEAN CORPUSCULAR VOLUME 86.4 fL (81.0-99.0); MEAN PLATELET VOLUME 8.1 fl (7.4-10.4); MONOCYTES % 4.6 % (2.0-8.0); PLATELET 206 x1000/uL (130-400); RED BLOOD CELL COUNT 2.78 mill/uL (4.2-5.4); RED CELL DISTRIBUTION WIDTH 15.3 % (11.6-14.6)
[2019-11-11 08:00] VITALS: BP 113/45
[2019-11-11] MEDS: INSULIN LISPRO 100 UNITS/ML SUBCUT SCH ×4 (08:10→21:00)
[2019-11-11] MEDS ORDERED: CEFTRIAXONE 1 G PREMIX 50 ML IV SCH (09:00)
[2019-11-11] MEDS: ZINC SULFATE 220 MG ( 50 ) CAPSULE PO SCH (11:49)
[2019-11-11] MEDS: ASCORBIC ACID 500 MG TABLET PO SCH ×2 (11:49→21:00)
[2019-11-11] MEDS: ASPIRIN 325MG EC TABLET PO SCH (11:50)
[2019-11-11 12:00] VITALS: BP 142/58
[2019-11-11 13:58] LABS: CHLORIDE 106 mEq/L (98-107)
[2019-11-11 14:09] LABS: FOLIC ACID (FOLATE) SERUM 5.9 ng/mL (>5.38)
[2019-11-11 14:13] LABS: PHOSPHORUS 2.9 mg/dL (2.5-4.9)
[2019-11-11 14:37] LABS: DIGOXIN 1.8 ng/mL (0.9-2.0)
[2019-11-11 16:00] VITALS: BP 126/70
[2019-11-11] MEDS: ENOXAPARIN 40MG/0.4ML SYR SUBCUT SCH (17:31)
[2019-11-11 20:00] VITALS: BP 103/77
[2019-11-12] VITALS: BP 181/69
[2019-11-12 04:00] VITALS: BP 164/80
[2019-11-12] MEDS: CARVEDILOL 12.5MG TABLET PO SCH ×2 (06:13→17:10)
[2019-11-12] MEDS: BLOOD SUGAR DIAGNOSTIC STRIP TEST SCH ×4 (07:40→21:00)
[2019-11-12 08:00] VITALS: BP 133/70
[2019-11-12] MEDS: INSULIN LISPRO 100 UNITS/ML SUBCUT SCH ×4 (08:10→21:00)
[2019-11-12] MEDS ORDERED: CEFTRIAXONE 1 G PREMIX 50 ML IV SCH (09:00)
[2019-11-12] MEDS ORDERED: LEVOFLOXACIN 250MG PREMIX 50 ML IV SCH (10:00)
[2019-11-12] MEDS: ASCORBIC ACID 500 MG TABLET PO SCH ×2 (10:11→21:00)
[2019-11-12] MEDS: ASPIRIN 325MG EC TABLET PO SCH (10:11)
[2019-11-12] MEDS: ZINC SULFATE 220 MG ( 50 ) CAPSULE PO SCH (10:11)
[2019-11-12] MEDS: FAMOTIDINE 20MG TABLET PO SCH (10:11)
[2019-11-12] MEDS: LEVOFLOXACIN 250MG PREMIX 50 ML IV SCH (10:36)
[2019-11-12 12:00] VITALS: BP 145/96
[2019-11-12] MEDS: CLONIDINE 0.1MG TABLET PO PRN (13:47)
[2019-11-12] MEDS: ENOXAPARIN 40MG/0.4ML SYR SUBCUT SCH (15:15)
[2019-11-12 16:00] VITALS: BP 159/89
[2019-11-12] MEDS: DIGOXIN 125MCG TABLET PO SCH (17:15)
[2019-11-12] MEDS: TRAMADOL 50MG TABLET PO PRN (18:42)
[2019-11-12 20:00] VITALS: BP 151/76
[2019-11-13] VITALS: BP 122/71
[2019-11-13 04:00] VITALS: BP 128/76
[2019-11-13] MEDS: CARVEDILOL 12.5MG TABLET PO SCH ×2 (05:53→18:35)
[2019-11-13 08:00] VITALS: BP_SYST 163
[2019-11-13] MEDS: BLOOD SUGAR DIAGNOSTIC STRIP TEST SCH ×4 (08:08→21:25)
[2019-11-13] MEDS: INSULIN LISPRO 100 UNITS/ML SUBCUT SCH ×4 (08:08→21:00)
[2019-11-13] MEDS: ONDANSETRON HCL 4MG/2ML INJ IV PRN (10:22)
[2019-11-13] MEDS: ASPIRIN 325MG EC TABLET PO SCH (10:30)
[2019-11-13] MEDS: ASCORBIC ACID 500 MG TABLET PO SCH ×2 (10:31→21:25)
[2019-11-13] MEDS: ZINC SULFATE 220 MG ( 50 ) CAPSULE PO SCH (10:31)
[2019-11-13] MEDS: CLONIDINE 0.1MG TABLET PO PRN (10:31)
[2019-11-13] MEDS: FAMOTIDINE 20MG TABLET PO SCH (10:31)
[2019-11-13 11:11] VITALS: BP 163/64
[2019-11-13] MEDS: ENOXAPARIN 40MG/0.4ML SYR SUBCUT SCH (15:18)
[2019-11-13] MEDS: ACETAMINOPHEN 325MG TABLET PO PRN (15:19)
[2019-11-13 15:25] LABS: BASOPHILS % 0.8 % (0.0-2.0); EOSINOPHILS % 3.1 % (0.0-5.0); HEMATOCRIT. 25.2 % (36.0-48.0); HEMOGLOBIN. 8.3 g/dL (12.0-16.0); LYMPHOCYTES % 12.4 % (20.0-50.0); MEAN CORPUSCULAR HEMOGLOBIN 29.3 pg (28.0-32.0); MEAN CORPUSCULAR VOLUME 89.2 fL (81.0-99.0); MEAN PLATELET VOLUME 7.9 fl (7.4-10.4); NEUTROPHILS % 77.7 % (40.0-76.0); PLATELET 215 x1000/uL (130-400); RED BLOOD CELL COUNT 2.83 mill/uL (4.2-5.4); RED CELL DISTRIBUTION WIDTH 15.9 % (11.6-14.6)
[2019-11-13 15:31] LABS: CHLORIDE 109 mEq/L (98-107)
[2019-11-13 16:00] VITALS: BP 143/74
[2019-11-13 16:01] LABS: DIGOXIN 1.6 ng/mL (0.9-2.0)
[2019-11-13] MEDS: TRAMADOL 50MG TABLET PO PRN (18:35)
[2019-11-13] MEDS: DIGOXIN 125MCG TABLET PO SCH (18:35)
[2019-11-14 00:03] VITALS: BP 154/71
[2019-11-14 04:00] VITALS: BP 159/66
[2019-11-14] MEDS: CARVEDILOL 12.5MG TABLET PO SCH ×2 (06:00→17:57)
[2019-11-14 08:00] VITALS: BP 178/66
[2019-11-14] MEDS: BLOOD SUGAR DIAGNOSTIC STRIP TEST SCH ×3 (08:04→17:42)
[2019-11-14] MEDS: INSULIN LISPRO 100 UNITS/ML SUBCUT SCH ×3 (08:04→18:57)
[2019-11-14] MEDS: FAMOTIDINE 20MG TABLET PO SCH (09:30)
[2019-11-14] MEDS: ZINC SULFATE 220 MG ( 50 ) CAPSULE PO SCH (09:33)
[2019-11-14] MEDS: CLONIDINE 0.1MG TABLET PO PRN (09:33)
[2019-11-14] MEDS: ASPIRIN 325MG EC TABLET PO SCH (09:33)
[2019-11-14] MEDS: ASCORBIC ACID 500 MG TABLET PO SCH (09:33)
[2019-11-14] MEDS: LEVOFLOXACIN 250MG PREMIX 50 ML IV SCH (10:32)
[2019-11-14 12:00] VITALS: BP 139/64
[2019-11-14] MEDS: TRAMADOL 50MG TABLET PO PRN (13:14)
[2019-11-14 16:00] VITALS: BP 153/67
[2019-11-14] MEDS: ENOXAPARIN 40MG/0.4ML SYR SUBCUT SCH (17:56)
[2019-11-14] MEDS: DIGOXIN 125MCG TABLET PO SCH (17:57)
[2019-11-14 19:33] VITALS: BP 144/69
[2019-11-16] MEDS ORDERED: LEVOFLOXACIN 250MG TABLET PO SCH (11:00)
== END 2019-11-14 20:15 | DRG 91 ==
LOC: ER 04:15 → 7WST 08:09 → SUPCPDRO 09:09 → ENRESERV 11:43
PROVIDERS: ADMIT Internal Medicine; ATTEND Internal Medicine
DX: G92 Toxic encephalopathy (principal); N17.0 Acute kidney failure with tubular necrosis; G82.50 Quadriplegia, unspecified; N39.0 Urinary tract infection, site not specified; E44.1 Mild protein-calorie malnutrition; I13.0 Hypertensive heart and chronic kidney disease with heart failure and stage 1 through stage 4 chronic kidney disease, or unspecified chronic kidney disease; R47.01 Aphasia; D64.9 Anemia, unspecified; E11.9 Type 2 diabetes mellitus without complications; I48.91 Unspecified atrial fibrillation; D63.8 Anemia in other chronic diseases classified elsewhere; N18.9 Chronic kidney disease, unspecified; E11.22 Type 2 diabetes mellitus with diabetic chronic kidney disease; E66.9 Obesity, unspecified; F03.90 Unspecified dementia, unspecified severity, without behavioral disturbance, psychotic disturbance, mood disturbance, and anxiety; T46.0X5A Adverse effect of cardiac-stimulant glycosides and drugs of similar action, initial encounter; R26.9 Unspecified abnormalities of gait and mobility; L89.90 Pressure ulcer of unspecified site, unspecified stage; R13.10 Dysphagia, unspecified; I50.9 Heart failure, unspecified; J44.9 Chronic obstructive pulmonary disease, unspecified; Z79.4 Long term (current) use of insulin; Z90.49 Acquired absence of other specified parts of digestive tract; Z95.0 Presence of cardiac pacemaker; Y92.89 Other specified places as the place of occurrence of the external cause; Z82.49 Family history of ischemic heart disease and other diseases of the circulatory system; Z83.3 Family history of diabetes mellitus; Z87.891 Personal history of nicotine dependence; Z91.81 History of falling; Z79.82 Long term (current) use of aspirin; Z79.899 Other long term (current) drug therapy; Z98.891 History of uterine scar from previous surgery
CPT/HCPCS: 36415; 71045; 76770; 80053; 80061; 80162; 80305; 80320; 81003; 82140; 82550; 82553; 82607; 82746; 82962; 83036; 83540; 83550; 83735; 84100; 84439; 84443; 84484; 85025; 86850; 86900; 93005; 93306; 93970; 97116; 97162; 97535; 99285; J0696; J1650; J1815; J1956; J2405; G0480

== ENCOUNTER 2019-11-14 20:10 | Inpatient (IN) | payer MEDICARE, MEDICAID ==
[~2019-11-14] VITALS: Ht 157.5 cm; Wt 124.7 kg
[2019-11-14 20:10] VITALS: BP 154/60
[2019-11-14 20:30] VITALS: BP 148/60
[2019-11-14] MEDS ORDERED: MAGNESIUM/ALUMINUM HYDROXIDE/SIMETHICONE 30ML UDC PO PRN (21:30)
[2019-11-14] MEDS ORDERED: GUAIFENESIN 200MG/10ML SUGAR FREE UDC PO PRN (21:30)
[2019-11-14] MEDS ORDERED: DEXTROSE 50% WATER 50ML SYRINGE IV PRN (21:45)
[2019-11-14] MEDS ORDERED: ONDANSETRON HCL 4MG/2ML INJ IV PRN (22:08)
[2019-11-14] MEDS: CLONIDINE 0.1MG TABLET PO PRN (23:01)
[2019-11-15] MEDS: IPRATROPIUM/ALBUTEROL 0.5-3(2.5)MG/3ML NEB HHN PRN ×2 (01:54→09:19)
[2019-11-15] MEDS: TRAMADOL 50MG TABLET PO PRN ×2 (04:49→16:05)
[2019-11-15] MEDS: BLOOD SUGAR DIAGNOSTIC STRIP TEST SCH ×4 (06:38→20:51)
[2019-11-15] MEDS: FAMOTIDINE 20MG TABLET PO SCH (06:56)
[2019-11-15 07:12] LABS: CHLORIDE 110 mEq/L (98-107)
[2019-11-15 07:35] LABS: BASOPHILS % 0.8 % (0.0-2.0); EOSINOPHILS % 4.7 % (0.0-5.0); HEMATOCRIT. 27.1 % (36.0-48.0); HEMOGLOBIN. 8.7 g/dL (12.0-16.0); LYMPHOCYTES % 13.5 % (20.0-50.0); MEAN CORPUSCULAR HEMOGLOBIN 29.1 pg (28.0-32.0); MEAN CORPUSCULAR VOLUME 90.2 fL (81.0-99.0); MEAN PLATELET VOLUME 7.9 fl (7.4-10.4); MONOCYTES % 6.1 % (2.0-8.0); NEUTROPHILS % 74.9 % (40.0-76.0); PLATELET 217 x1000/uL (130-400); RED BLOOD CELL COUNT 3.01 mill/uL (4.2-5.4)
[2019-11-15] MEDS: ZINC SULFATE 220 MG ( 50 ) CAPSULE PO SCH (08:24)
[2019-11-15] MEDS: CARVEDILOL 12.5MG TABLET PO SCH ×2 (08:24→20:51)
[2019-11-15] MEDS: ASCORBIC ACID 500 MG TABLET PO SCH ×2 (08:24→20:51)
[2019-11-15] MEDS: ASPIRIN 325MG EC TABLET PO SCH (08:24)
[2019-11-15] MEDS: DOCUSATE SODIUM 100MG CAPSULE PO SCH ×2 (08:24→16:05)
[2019-11-15] MEDS: ENOXAPARIN 40MG/0.4ML SYR SUBCUT SCH (08:25)
[2019-11-15] MEDS: INSULIN LISPRO 100 UNITS/ML SUBCUT SCH ×4 (08:25→20:58)
[2019-11-15 08:29] VITALS: BP 172/72
[2019-11-15 09:00] VITALS: BP 144/67
[2019-11-15] MEDS: LEVOFLOXACIN 250MG TABLET PO SCH (11:35)
[2019-11-15] MEDS ORDERED: LACTULOSE 20G/30ML UDC PO SCH (12:00)
[2019-11-15] MEDS: DIGOXIN 125MCG TABLET PO SCH (17:15)
[2019-11-15] MEDS: ACETAMINOPHEN 325MG TABLET PO PRN (17:33)
[2019-11-15 20:00] VITALS: BP 151/67
[2019-11-16] MEDS: ACETAMINOPHEN 325MG TABLET PO PRN ×2 (04:10→16:09)
[2019-11-16] MEDS: BLOOD SUGAR DIAGNOSTIC STRIP TEST SCH ×4 (05:47→20:06)
[2019-11-16] MEDS: FAMOTIDINE 20MG TABLET PO SCH (06:07)
[2019-11-16] MEDS: INSULIN LISPRO 100 UNITS/ML SUBCUT SCH ×4 (06:23→20:17)
[2019-11-16 07:23] LABS: BG BASE EXCESS -4.8 mmol/L (-2.0-2.0); BG CARBOXYHEMOGLOBIN 0.1 % (0.5-1.5); BG DEOXYHEMOGLOBIN 15.4 % (0.0-5.0); BG HCO3 ACT 21.1 mmol/L (22.0-26.0); BG OXYGEN SATURATION 84.6 % (92.0-98.5); BG OXYHEMOGLOBIN 84.5 % (94.0-97.0); BG PCO2 42.4 mmHg (35.0-45.0); BG PH 7.315 (7.350-7.450); BG PO2 51.1 mmHg (75.0-100.0); BG SAMPLE SITE RIGHT BRACHIAL; BG TOTAL HEMOGLOBIN 9.1 g/dL (12.0-18.0); BG VENT MODE ROOM AIR
[2019-11-16] MEDS: ASPIRIN 325MG EC TABLET PO SCH (08:16)
[2019-11-16] MEDS: ASCORBIC ACID 500 MG TABLET PO SCH ×2 (08:17→20:06)
[2019-11-16] MEDS: CARVEDILOL 12.5MG TABLET PO SCH ×2 (08:17→20:06)
[2019-11-16] MEDS: ZINC SULFATE 220 MG ( 50 ) CAPSULE PO SCH (08:17)
[2019-11-16] MEDS: ENOXAPARIN 40MG/0.4ML SYR SUBCUT SCH (08:18)
[2019-11-16] MEDS: DOCUSATE SODIUM 100MG CAPSULE PO SCH ×2 (08:18→16:33)
[2019-11-16 08:28] VITALS: BP 139/55
[2019-11-16] MEDS ORDERED: FUROSEMIDE 40MG/4ML VIAL IVP SCH (08:45)
[2019-11-16] MEDS: NITROGLYCERIN 0.4MG TABLET SL SL PRN ×2 (15:54→16:02)
[2019-11-16] MEDS: SPIRONOLACTONE 25MG TABLET PO SCH (17:00)
[2019-11-16] MEDS: DIGOXIN 125MCG TABLET PO SCH (17:00)
[2019-11-16 20:00] VITALS: BP 156/56
[2019-11-16] MEDS: FUROSEMIDE 20MG TABLET PO SCH (20:05)
[2019-11-16] MEDS: DIPHENHYDRAMINE 50MG CAPSULE PO PRN (20:12)
[2019-11-16] MEDS: TRAMADOL 50MG TABLET PO PRN (22:56)
[2019-11-17] MEDS: ACETAMINOPHEN 325MG TABLET PO PRN (02:54)
[2019-11-17] MEDS: TRAMADOL 50MG TABLET PO PRN (05:00)
[2019-11-17] MEDS: BLOOD SUGAR DIAGNOSTIC STRIP TEST SCH ×4 (05:48→21:59)
[2019-11-17] MEDS: INSULIN LISPRO 100 UNITS/ML SUBCUT SCH ×4 (06:22→21:00)
[2019-11-17] MEDS: FAMOTIDINE 20MG TABLET PO SCH (06:25)
[2019-11-17] MEDS: SPIRONOLACTONE 25MG TABLET PO SCH ×2 (06:26→17:14)
[2019-11-17 07:30] VITALS: BP 155/77
[2019-11-17] MEDS: FUROSEMIDE 20MG TABLET PO SCH ×2 (08:29→21:58)
[2019-11-17] MEDS: ZINC SULFATE 220 MG ( 50 ) CAPSULE PO SCH (08:29)
[2019-11-17] MEDS: ENOXAPARIN 40MG/0.4ML SYR SUBCUT SCH (08:29)
[2019-11-17] MEDS: ASCORBIC ACID 500 MG TABLET PO SCH ×2 (08:29→21:58)
[2019-11-17] MEDS: ASPIRIN 325MG EC TABLET PO SCH (08:29)
[2019-11-17] MEDS: CARVEDILOL 12.5MG TABLET PO SCH ×2 (08:30→21:58)
[2019-11-17 10:41] LABS: BASOPHILS % 0.6 % (0.0-2.0); EOSINOPHILS % 4.5 % (0.0-5.0); HEMATOCRIT. 27.1 % (36.0-48.0); HEMOGLOBIN. 8.8 g/dL (12.0-16.0); LYMPHOCYTES % 12.9 % (20.0-50.0); MEAN CORPUSCULAR HEMOGLOBIN 29.6 pg (28.0-32.0); MEAN CORPUSCULAR VOLUME 91.2 fL (81.0-99.0); MEAN PLATELET VOLUME 7.6 fl (7.4-10.4); MONOCYTES % 5.2 % (2.0-8.0); NEUTROPHILS % 76.8 % (40.0-76.0); PLATELET 217 x1000/uL (130-400); RED BLOOD CELL COUNT 2.97 mill/uL (4.2-5.4); RED CELL DISTRIBUTION WIDTH 16.6 % (11.6-14.6)
[2019-11-17 10:59] LABS: CHLORIDE 109 mEq/L (98-107)
[2019-11-17 11:07] LABS: TOTAL IRON BINDING CAPACITY 261 ug/dL (250-450)
[2019-11-17] MEDS: DOCUSATE SODIUM 100MG CAPSULE PO SCH ×2 (11:11→17:09)
[2019-11-17] MEDS: LEVOFLOXACIN 250MG TABLET PO SCH (11:11)
[2019-11-17 11:58] LABS: FOLIC ACID (FOLATE) SERUM 5.7 ng/mL (>5.38)
[2019-11-17 13:06] LABS: *CREATININE RANDOM URINE 117.7 mg/dL (Not Estab.); MICROALBUMIN RANDOM URINE 283.6 ug/mL (Not Estab.)
[2019-11-17 13:18] LABS: BG BASE EXCESS -3.1 mmol/L (-2.0-2.0); BG CARBOXYHEMOGLOBIN 0.3 % (0.5-1.5); BG DEOXYHEMOGLOBIN 2.9 % (0.0-5.0); BG FRACTION INSPIRED OXYGEN 28; BG HCO3 ACT 23.1 mmol/L (22.0-26.0); BG METHEMOGLOBIN 0.2 % (0.0-1.5); BG OXYGEN SATURATION 97.1 % (92.0-98.5); BG OXYHEMOGLOBIN 96.6 % (94.0-97.0); BG PCO2 46.5 mmHg (35.0-45.0); BG PH 7.314 (7.350-7.450); BG PO2 95.5 mmHg (75.0-100.0); BG SAMPLE SITE RIGHT RADIAL; BG TOTAL HEMOGLOBIN 11.1 g/dL (12.0-18.0); BG VENT MODE NASAL CANNULA
[2019-11-17 17:10] VITALS: BP 165/62
[2019-11-17] MEDS: DIGOXIN 125MCG TABLET PO SCH (17:14)
[2019-11-17 18:30] VITALS: BP 159/58
[2019-11-17 20:00] VITALS: BP 153/60
[2019-11-17] MEDS: DIPHENHYDRAMINE 50MG CAPSULE PO PRN (21:58)
[2019-11-17] MEDS: IRON SUCROSE COMPLEX 100 MG in SODIUM CHLORIDE 0.9% 100 ML IV SCH (22:55)
[2019-11-18] MEDS: ACETAMINOPHEN 325MG TABLET PO PRN (00:21)
[2019-11-18] MEDS: BLOOD SUGAR DIAGNOSTIC STRIP TEST SCH ×4 (05:54→21:00)
[2019-11-18] MEDS: FAMOTIDINE 20MG TABLET PO SCH (05:54)
[2019-11-18] MEDS: SPIRONOLACTONE 25MG TABLET PO SCH ×2 (05:55→17:33)
[2019-11-18] MEDS: INSULIN LISPRO 100 UNITS/ML SUBCUT SCH ×4 (05:55→21:00)
[2019-11-18 08:02] VITALS: BP 172/67
[2019-11-18] MEDS: ENOXAPARIN 40MG/0.4ML SYR SUBCUT SCH (09:16)
[2019-11-18] MEDS: ASPIRIN 325MG EC TABLET PO SCH (09:16)
[2019-11-18] MEDS: ASCORBIC ACID 500 MG TABLET PO SCH ×2 (09:17→20:47)
[2019-11-18] MEDS: CARVEDILOL 12.5MG TABLET PO SCH ×2 (09:17→20:53)
[2019-11-18] MEDS: DOCUSATE SODIUM 100MG CAPSULE PO SCH ×2 (09:17→17:00)
[2019-11-18] MEDS: ZINC SULFATE 220 MG ( 50 ) CAPSULE PO SCH (09:17)
[2019-11-18] MEDS: FUROSEMIDE 20MG TABLET PO SCH ×2 (09:17→20:47)
[2019-11-18] MEDS: DIGOXIN 125MCG TABLET PO SCH (17:29)
[2019-11-18 20:00] VITALS: BP 162/72
[2019-11-18] MEDS: TRAMADOL 50MG TABLET PO PRN (20:53)
[2019-11-18] MEDS: IRON SUCROSE COMPLEX 100 MG in SODIUM CHLORIDE 0.9% 100 ML IV SCH (20:54)
[2019-11-19 06:22] LABS: BASOPHILS % 0.6 % (0.0-2.0); EOSINOPHILS % 3.9 % (0.0-5.0); HEMATOCRIT. 25.3 % (36.0-48.0); HEMOGLOBIN. 8.4 g/dL (12.0-16.0); LYMPHOCYTES % 13.3 % (20.0-50.0); MEAN CORPUSCULAR HEMOGLOBIN 29.7 pg (28.0-32.0); MEAN CORPUSCULAR VOLUME 89.6 fL (81.0-99.0); MEAN PLATELET VOLUME 7.7 fl (7.4-10.4); MONOCYTES % 5.4 % (2.0-8.0); NEUTROPHILS % 76.8 % (40.0-76.0); PLATELET 204 x1000/uL (130-400); RED BLOOD CELL COUNT 2.83 mill/uL (4.2-5.4); RED CELL DISTRIBUTION WIDTH 16.5 % (11.6-14.6)
[2019-11-19] MEDS: BLOOD SUGAR DIAGNOSTIC STRIP TEST SCH ×4 (06:29→21:25)
[2019-11-19] MEDS: SPIRONOLACTONE 25MG TABLET PO SCH ×2 (06:29→17:25)
[2019-11-19] MEDS: FAMOTIDINE 20MG TABLET PO SCH (06:29)
[2019-11-19 08:00] VITALS: BP 178/68
[2019-11-19] MEDS: INSULIN LISPRO 100 UNITS/ML SUBCUT SCH ×5 (09:00→22:22)
[2019-11-19] MEDS: ENOXAPARIN 40MG/0.4ML SYR SUBCUT SCH (10:27)
[2019-11-19] MEDS: FUROSEMIDE 20MG TABLET PO SCH ×2 (10:28→21:24)
[2019-11-19] MEDS: CARVEDILOL 12.5MG TABLET PO SCH ×2 (10:28→21:24)
[2019-11-19] MEDS: LEVOFLOXACIN 250MG TABLET PO SCH (10:28)
[2019-11-19] MEDS: ASCORBIC ACID 500 MG TABLET PO SCH ×2 (10:28→21:24)
[2019-11-19] MEDS: DOCUSATE SODIUM 100MG CAPSULE PO SCH ×3 (10:28→17:00)
[2019-11-19] MEDS: ASPIRIN 325MG EC TABLET PO SCH (10:28)
[2019-11-19] MEDS: ZINC SULFATE 220 MG ( 50 ) CAPSULE PO SCH (10:29)
[2019-11-19] MEDS: TRAMADOL 50MG TABLET PO PRN (11:29)
[2019-11-19] MEDS: DIGOXIN 125MCG TABLET PO SCH (17:23)
[2019-11-19 20:00] VITALS: BP 142/62
[2019-11-19] MEDS: ZOLPIDEM TARTRATE 5MG TABLET PO PRN (21:24)
[2019-11-19] MEDS: IRON SUCROSE COMPLEX 100 MG in SODIUM CHLORIDE 0.9% 100 ML IV SCH (21:25)
[2019-11-20] MEDS: ACETAMINOPHEN 325MG TABLET PO PRN ×3 (02:19→14:53)
[2019-11-20] MEDS: IPRATROPIUM/ALBUTEROL 0.5-3(2.5)MG/3ML NEB HHN PRN (04:04)
[2019-11-20] MEDS: BLOOD SUGAR DIAGNOSTIC STRIP TEST SCH ×4 (06:48→21:04)
[2019-11-20] MEDS: FAMOTIDINE 20MG TABLET PO SCH (06:48)
[2019-11-20] MEDS: SPIRONOLACTONE 25MG TABLET PO SCH ×2 (06:48→17:35)
[2019-11-20 08:00] VITALS: BP 167/66
[2019-11-20] MEDS: ASCORBIC ACID 500 MG TABLET PO SCH ×2 (08:33→21:02)
[2019-11-20] MEDS: DOCUSATE SODIUM 100MG CAPSULE PO SCH ×2 (08:33→16:37)
[2019-11-20] MEDS: INSULIN LISPRO 100 UNITS/ML SUBCUT SCH ×4 (08:34→21:00)
[2019-11-20] MEDS: ASPIRIN 325MG EC TABLET PO SCH (08:34)
[2019-11-20] MEDS: FUROSEMIDE 20MG TABLET PO SCH ×2 (08:34→21:02)
[2019-11-20] MEDS: ZINC SULFATE 220 MG ( 50 ) CAPSULE PO SCH (08:34)
[2019-11-20] MEDS: CARVEDILOL 12.5MG TABLET PO SCH ×2 (08:34→21:02)
[2019-11-20] MEDS: ENOXAPARIN 40MG/0.4ML SYR SUBCUT SCH (08:34)
[2019-11-20 15:09] LABS: 25-HYDROXY VITAMIN D3 6.6 ng/mL (.)
[2019-11-20 17:15] VITALS: BP 153/59
[2019-11-20] MEDS: DIGOXIN 125MCG TABLET PO SCH (17:32)
[2019-11-20 20:00] VITALS: BP 187/74
[2019-11-20 21:00] VITALS: BP 147/108
[2019-11-20] MEDS: IRON SUCROSE COMPLEX 100 MG in SODIUM CHLORIDE 0.9% 100 ML IV SCH (21:01)
[2019-11-20] MEDS: ERGOCALCIFEROL 50000UNITS CAPSULE PO SCH (21:01)
[2019-11-20] MEDS: ZOLPIDEM TARTRATE 5MG TABLET PO PRN (21:09)
[2019-11-21] MEDS: ACETAMINOPHEN 325MG TABLET PO PRN (01:45)
[2019-11-21 02:03] VITALS: BP 132/51
[2019-11-21] MEDS: CLONIDINE 0.1MG TABLET PO PRN (02:23)
[2019-11-21 03:33] VITALS: BP 164/63
[2019-11-21] MEDS: FAMOTIDINE 20MG TABLET PO SCH (06:40)
[2019-11-21] MEDS: SPIRONOLACTONE 25MG TABLET PO SCH ×2 (06:44→17:49)
[2019-11-21] MEDS: BLOOD SUGAR DIAGNOSTIC STRIP TEST SCH ×4 (06:48→21:00)
[2019-11-21 07:33] LABS: BASOPHILS % 0.6 % (0.0-2.0); EOSINOPHILS % 3.6 % (0.0-5.0); HEMATOCRIT. 29.2 % (36.0-48.0); HEMOGLOBIN. 9.6 g/dL (12.0-16.0); LYMPHOCYTES % 15.6 % (20.0-50.0); MEAN CORPUSCULAR HEMOGLOBIN 29.8 pg (28.0-32.0); MEAN CORPUSCULAR VOLUME 90.5 fL (81.0-99.0); MONOCYTES % 4.3 % (2.0-8.0); NEUTROPHILS % 75.9 % (40.0-76.0); PLATELET 226 x1000/uL (130-400); RED BLOOD CELL COUNT 3.22 mill/uL (4.2-5.4); RED CELL DISTRIBUTION WIDTH 16.9 % (11.6-14.6)
[2019-11-21 08:06] VITALS: BP 186/81
[2019-11-21] MEDS: ENOXAPARIN 40MG/0.4ML SYR SUBCUT SCH (08:31)
[2019-11-21] MEDS: ASCORBIC ACID 500 MG TABLET PO SCH ×2 (08:31→22:25)
[2019-11-21] MEDS: ZINC SULFATE 220 MG ( 50 ) CAPSULE PO SCH (08:31)
[2019-11-21] MEDS: ASPIRIN 325MG EC TABLET PO SCH (08:32)
[2019-11-21] MEDS: CARVEDILOL 12.5MG TABLET PO SCH ×2 (08:32→22:28)
[2019-11-21] MEDS: FUROSEMIDE 20MG TABLET PO SCH ×2 (08:32→22:24)
[2019-11-21] MEDS: DOCUSATE SODIUM 100MG CAPSULE PO SCH ×2 (08:32→17:00)
[2019-11-21] MEDS: INSULIN LISPRO 100 UNITS/ML SUBCUT SCH ×4 (08:33→21:00)
[2019-11-21] MEDS: LEVOFLOXACIN 250MG TABLET PO SCH (11:59)
[2019-11-21] MEDS ORDERED: SODIUM POLYSTYRENE SULFONATE 15 G/60 ML BOT PO NR (12:30)
[2019-11-21 13:30] VITALS: BP 146/61
[2019-11-21] MEDS: AMLODIPINE 5MG TABLET PO SCH (13:42)
[2019-11-21] MEDS: IPRATROPIUM/ALBUTEROL 0.5-3(2.5)MG/3ML NEB HHN PRN (16:03)
[2019-11-21] MEDS: DIGOXIN 125MCG TABLET PO SCH (17:50)
[2019-11-21 20:00] VITALS: BP 176/72
[2019-11-21] MEDS: ZOLPIDEM TARTRATE 5MG TABLET PO PRN (22:25)
[2019-11-22 00:09] VITALS: BP 157/63
[2019-11-22] MEDS: IRON SUCROSE COMPLEX 100 MG in SODIUM CHLORIDE 0.9% 100 ML IV SCH (01:29)
[2019-11-22] MEDS: SPIRONOLACTONE 25MG TABLET PO SCH (06:27)
[2019-11-22] MEDS: CLONIDINE 0.1MG TABLET PO PRN (06:31)
[2019-11-22] MEDS: BLOOD SUGAR DIAGNOSTIC STRIP TEST SCH ×4 (06:33→22:05)
[2019-11-22] MEDS: FAMOTIDINE 20MG TABLET PO SCH (07:00)
[2019-11-22 08:12] VITALS: BP 172/66
[2019-11-22] MEDS: INSULIN LISPRO 100 UNITS/ML SUBCUT SCH ×4 (09:00→22:50)
[2019-11-22] MEDS: DOCUSATE SODIUM 100MG CAPSULE PO SCH ×2 (09:23→17:00)
[2019-11-22] MEDS: ASCORBIC ACID 500 MG TABLET PO SCH ×2 (09:24→22:09)
[2019-11-22] MEDS: ZINC SULFATE 220 MG ( 50 ) CAPSULE PO SCH (09:24)
[2019-11-22] MEDS: FUROSEMIDE 20MG TABLET PO SCH ×2 (09:24→22:09)
[2019-11-22] MEDS: AMLODIPINE 5MG TABLET PO SCH (09:24)
[2019-11-22] MEDS: CARVEDILOL 12.5MG TABLET PO SCH ×2 (09:24→22:09)
[2019-11-22] MEDS: ASPIRIN 325MG EC TABLET PO SCH (09:24)
[2019-11-22] MEDS: ENOXAPARIN 40MG/0.4ML SYR SUBCUT SCH (09:32)
[2019-11-22] MEDS: ACETAMINOPHEN 325MG TABLET PO PRN ×2 (10:13→22:35)
[2019-11-22 16:47] LABS: BASOPHILS % 0.7 % (0.0-2.0); EOSINOPHILS % 3.8 % (0.0-5.0); HEMOGLOBIN. 9.8 g/dL (12.0-16.0); LYMPHOCYTES % 12.6 % (20.0-50.0); MEAN CORPUSCULAR HEMOGLOBIN 29.4 pg (28.0-32.0); MEAN CORPUSCULAR VOLUME 89.6 fL (81.0-99.0); MEAN PLATELET VOLUME 8.1 fl (7.4-10.4); MONOCYTES % 4.5 % (2.0-8.0); NEUTROPHILS % 78.4 % (40.0-76.0); PLATELET 220 x1000/uL (130-400); RED BLOOD CELL COUNT 3.35 mill/uL (4.2-5.4); RED CELL DISTRIBUTION WIDTH 16.7 % (11.6-14.6)
[2019-11-22] MEDS: DIGOXIN 125MCG TABLET PO SCH (17:13)
[2019-11-22 20:00] VITALS: BP 153/61
[2019-11-22] MEDS: ZOLPIDEM TARTRATE 5MG TABLET PO PRN (22:10)
[2019-11-23] MEDS: BLOOD SUGAR DIAGNOSTIC STRIP TEST SCH ×4 (06:35→22:00)
[2019-11-23] MEDS: FAMOTIDINE 20MG TABLET PO SCH (06:35)
[2019-11-23] MEDS: INSULIN LISPRO 100 UNITS/ML SUBCUT SCH ×4 (07:00→22:10)
[2019-11-23 08:00] VITALS: BP 153/60
[2019-11-23 08:49] LABS: BASOPHILS % 0.7 % (0.0-2.0); EOSINOPHILS % 3.7 % (0.0-5.0); HEMATOCRIT. 30.4 % (36.0-48.0); HEMOGLOBIN. 10.1 g/dL (12.0-16.0); LYMPHOCYTES % 15.1 % (20.0-50.0); MEAN CORPUSCULAR HEMOGLOBIN 29.8 pg (28.0-32.0); MEAN CORPUSCULAR VOLUME 89.6 fL (81.0-99.0); MEAN PLATELET VOLUME 7.6 fl (7.4-10.4); MONOCYTES % 4.7 % (2.0-8.0); NEUTROPHILS % 75.8 % (40.0-76.0); PLATELET 220 x1000/uL (130-400); RED CELL DISTRIBUTION WIDTH 17.1 % (11.6-14.6)
[2019-11-23] MEDS: DOCUSATE SODIUM 100MG CAPSULE PO SCH ×2 (09:00→17:00)
[2019-11-23] MEDS: FUROSEMIDE 20MG TABLET PO SCH ×2 (09:11→22:05)
[2019-11-23] MEDS: ENOXAPARIN 40MG/0.4ML SYR SUBCUT SCH (09:11)
[2019-11-23] MEDS: ASCORBIC ACID 500 MG TABLET PO SCH ×2 (09:15→22:05)
[2019-11-23] MEDS: ZINC SULFATE 220 MG ( 50 ) CAPSULE PO SCH (09:15)
[2019-11-23] MEDS: CARVEDILOL 12.5MG TABLET PO SCH ×2 (09:15→22:05)
[2019-11-23] MEDS: AMLODIPINE 5MG TABLET PO SCH (09:15)
[2019-11-23] MEDS: ASPIRIN 325MG EC TABLET PO SCH (09:15)
[2019-11-23] MEDS: ACETAMINOPHEN 325MG TABLET PO PRN ×2 (09:20→22:18)
[2019-11-23] MEDS: SODIUM POLYSTYRENE SULFONATE 15 G/60 ML BOT PO SCH ×2 (11:00→13:37)
[2019-11-23] MEDS: CITRIC ACID/SODIUM CITRATE SOLN 30ML UDC PO SCH ×2 (13:39→18:28)
[2019-11-23] MEDS: DIGOXIN 125MCG TABLET PO SCH (18:27)
[2019-11-23 20:00] VITALS: BP 164/77
[2019-11-24] MEDS: ZOLPIDEM TARTRATE 5MG TABLET PO PRN (00:09)
[2019-11-24] MEDS: FAMOTIDINE 20MG TABLET PO SCH (06:42)
[2019-11-24] MEDS: BLOOD SUGAR DIAGNOSTIC STRIP TEST SCH ×4 (06:42→21:15)
[2019-11-24] MEDS: ACETAMINOPHEN 325MG TABLET PO PRN (06:42)
[2019-11-24] MEDS: INSULIN LISPRO 100 UNITS/ML SUBCUT SCH ×4 (06:45→21:00)
[2019-11-24 08:30] VITALS: BP 161/66
[2019-11-24] MEDS: CITRIC ACID/SODIUM CITRATE SOLN 30ML UDC PO SCH ×3 (08:39→17:07)
[2019-11-24] MEDS: ZINC SULFATE 220 MG ( 50 ) CAPSULE PO SCH (08:40)
[2019-11-24] MEDS: CARVEDILOL 12.5MG TABLET PO SCH ×2 (08:40→22:11)
[2019-11-24] MEDS: AMLODIPINE 5MG TABLET PO SCH (08:41)
[2019-11-24] MEDS: ASCORBIC ACID 500 MG TABLET PO SCH ×2 (08:41→21:14)
[2019-11-24] MEDS: ENOXAPARIN 40MG/0.4ML SYR SUBCUT SCH (08:41)
[2019-11-24] MEDS: FUROSEMIDE 20MG TABLET PO SCH ×2 (08:41→21:14)
[2019-11-24] MEDS: ASPIRIN 325MG EC TABLET PO SCH (08:41)
[2019-11-24] MEDS: DOCUSATE SODIUM 100MG CAPSULE PO SCH ×2 (08:51→16:32)
[2019-11-24 10:05] LABS: BASOPHILS % 0.6 % (0.0-2.0); EOSINOPHILS % 3.6 % (0.0-5.0); HEMATOCRIT. 29.5 % (36.0-48.0); HEMOGLOBIN. 9.5 g/dL (12.0-16.0); LYMPHOCYTES % 14.4 % (20.0-50.0); MEAN CORPUSCULAR HEMOGLOBIN 29.1 pg (28.0-32.0); MEAN CORPUSCULAR VOLUME 89.8 fL (81.0-99.0); MEAN PLATELET VOLUME 7.8 fl (7.4-10.4); MONOCYTES % 5.5 % (2.0-8.0); NEUTROPHILS % 75.9 % (40.0-76.0); PLATELET 236 x1000/uL (130-400); RED BLOOD CELL COUNT 3.28 mill/uL (4.2-5.4); RED CELL DISTRIBUTION WIDTH 17.2 % (11.6-14.6)
[2019-11-24] MEDS: DIGOXIN 125MCG TABLET PO SCH (17:07)
[2019-11-24 20:00] VITALS: BP 146/78
[2019-11-25] MEDS: ZOLPIDEM TARTRATE 5MG TABLET PO PRN ×2 (00:30→22:00)
[2019-11-25] MEDS: ACETAMINOPHEN 325MG TABLET PO PRN ×3 (00:30→22:01)
[2019-11-25] MEDS: FAMOTIDINE 20MG TABLET PO SCH ×2 (06:19→09:49)
[2019-11-25] MEDS: BLOOD SUGAR DIAGNOSTIC STRIP TEST SCH ×4 (06:19→22:00)
[2019-11-25 08:00] VITALS: BP 166/83
[2019-11-25] MEDS: INSULIN LISPRO 100 UNITS/ML SUBCUT SCH ×4 (09:00→22:00)
[2019-11-25] MEDS: DOCUSATE SODIUM 100MG CAPSULE PO SCH ×2 (09:46→16:40)
[2019-11-25] MEDS: CITRIC ACID/SODIUM CITRATE SOLN 30ML UDC PO SCH ×3 (09:46→17:15)
[2019-11-25] MEDS: CARVEDILOL 12.5MG TABLET PO SCH ×2 (09:47→22:00)
[2019-11-25] MEDS: FUROSEMIDE 20MG TABLET PO SCH ×2 (09:48→22:00)
[2019-11-25] MEDS: ASPIRIN 325MG EC TABLET PO SCH (09:48)
[2019-11-25] MEDS: ZINC SULFATE 220 MG ( 50 ) CAPSULE PO SCH (09:49)
[2019-11-25] MEDS: ASCORBIC ACID 500 MG TABLET PO SCH ×2 (09:49→22:00)
[2019-11-25] MEDS: AMLODIPINE 5MG TABLET PO SCH (09:49)
[2019-11-25] MEDS: ENOXAPARIN 40MG/0.4ML SYR SUBCUT SCH (09:51)
[2019-11-25] MEDS: DIGOXIN 125MCG TABLET PO SCH (17:15)
[2019-11-25 20:00] VITALS: BP 144/70
[2019-11-26] MEDS: BLOOD SUGAR DIAGNOSTIC STRIP TEST SCH ×4 (06:48→21:41)
[2019-11-26 07:02] LABS: BASOPHILS % 0.6 % (0.0-2.0); EOSINOPHILS % 3.3 % (0.0-5.0); HEMATOCRIT. 31.5 % (36.0-48.0); HEMOGLOBIN. 10.3 g/dL (12.0-16.0); LYMPHOCYTES % 17.1 % (20.0-50.0); MEAN CORPUSCULAR HEMOGLOBIN 29.4 pg (28.0-32.0); MEAN CORPUSCULAR VOLUME 90.2 fL (81.0-99.0); MEAN PLATELET VOLUME 7.8 fl (7.4-10.4); MONOCYTES % 4.3 % (2.0-8.0); NEUTROPHILS % 74.7 % (40.0-76.0); PLATELET 196 x1000/uL (130-400); RED CELL DISTRIBUTION WIDTH 17.7 % (11.6-14.6)
[2019-11-26] MEDS: DOCUSATE SODIUM 100MG CAPSULE PO SCH ×2 (07:55→17:00)
[2019-11-26] MEDS: INSULIN LISPRO 100 UNITS/ML SUBCUT SCH ×4 (07:56→21:00)
[2019-11-26 08:00] VITALS: BP_DIAS 173
[2019-11-26] MEDS: ASCORBIC ACID 500 MG TABLET PO SCH ×2 (09:00→21:41)
[2019-11-26] MEDS: FUROSEMIDE 20MG TABLET PO SCH ×2 (09:00→21:41)
[2019-11-26] MEDS: AMLODIPINE 5MG TABLET PO SCH (09:00)
[2019-11-26] MEDS: CARVEDILOL 12.5MG TABLET PO SCH ×2 (09:00→21:41)
[2019-11-26] MEDS: ASPIRIN 325MG EC TABLET PO SCH (09:00)
[2019-11-26] MEDS: CITRIC ACID/SODIUM CITRATE SOLN 30ML UDC PO SCH ×3 (09:00→17:00)
[2019-11-26] MEDS: ENOXAPARIN 40MG/0.4ML SYR SUBCUT SCH (09:00)
[2019-11-26] MEDS: ZINC SULFATE 220 MG ( 50 ) CAPSULE PO SCH (09:00)
[2019-11-26] MEDS: IBUPROFEN 200MG TABLET PO SCH ×2 (13:14→17:52)
[2019-11-26] MEDS: DIGOXIN 125MCG TABLET PO SCH (17:52)
[2019-11-26 20:00] VITALS: BP 155/67
[2019-11-26] MEDS: ZOLPIDEM TARTRATE 5MG TABLET PO PRN (23:34)
[2019-11-26] MEDS: ACETAMINOPHEN 325MG TABLET PO PRN (23:34)
[2019-11-27] MEDS: FAMOTIDINE 20MG TABLET PO SCH (06:40)
[2019-11-27] MEDS: BLOOD SUGAR DIAGNOSTIC STRIP TEST SCH ×4 (06:41→20:50)
[2019-11-27] MEDS: INSULIN LISPRO 100 UNITS/ML SUBCUT SCH ×4 (06:53→21:00)
[2019-11-27 08:00] VITALS: BP 149/74
[2019-11-27] MEDS: IBUPROFEN 200MG TABLET PO SCH ×3 (08:55→17:15)
[2019-11-27] MEDS: ERGOCALCIFEROL 50000UNITS CAPSULE PO SCH (09:56)
[2019-11-27] MEDS: CITRIC ACID/SODIUM CITRATE SOLN 30ML UDC PO SCH ×3 (09:56→17:15)
[2019-11-27] MEDS: DOCUSATE SODIUM 100MG CAPSULE PO SCH ×2 (09:56→17:00)
[2019-11-27] MEDS: ASPIRIN 325MG EC TABLET PO SCH (09:57)
[2019-11-27] MEDS: ZINC SULFATE 220 MG ( 50 ) CAPSULE PO SCH (09:57)
[2019-11-27] MEDS: FUROSEMIDE 20MG TABLET PO SCH ×2 (09:58→20:50)
[2019-11-27] MEDS: CARVEDILOL 12.5MG TABLET PO SCH ×2 (09:58→20:50)
[2019-11-27] MEDS: ASCORBIC ACID 500 MG TABLET PO SCH ×2 (09:58→20:50)
[2019-11-27] MEDS: AMLODIPINE 5MG TABLET PO SCH (09:58)
[2019-11-27] MEDS: ENOXAPARIN 40MG/0.4ML SYR SUBCUT SCH (09:59)
[2019-11-27] MEDS: DIGOXIN 125MCG TABLET PO SCH (17:26)
[2019-11-27 20:00] VITALS: BP 131/71
[2019-11-28] MEDS: BLOOD SUGAR DIAGNOSTIC STRIP TEST SCH ×2 (06:24→11:44)
[2019-11-28] MEDS: INSULIN LISPRO 100 UNITS/ML SUBCUT SCH ×2 (06:25→13:00)
[2019-11-28] MEDS: FAMOTIDINE 20MG TABLET PO SCH (06:25)
[2019-11-28 06:55] LABS: BASOPHILS % 0.4 % (0.0-2.0); EOSINOPHILS % 3.7 % (0.0-5.0); HEMATOCRIT. 29.6 % (36.0-48.0); HEMOGLOBIN. 9.6 g/dL (12.0-16.0); LYMPHOCYTES % 14.9 % (20.0-50.0); MEAN CORPUSCULAR HEMOGLOBIN 29.4 pg (28.0-32.0); MEAN CORPUSCULAR VOLUME 90.5 fL (81.0-99.0); MONOCYTES % 4.8 % (2.0-8.0); NEUTROPHILS % 76.2 % (40.0-76.0); PLATELET 200 x1000/uL (130-400); RED BLOOD CELL COUNT 3.27 mill/uL (4.2-5.4); RED CELL DISTRIBUTION WIDTH 17.4 % (11.6-14.6)
[2019-11-28 06:59] LABS: CHLORIDE 108 mEq/L (98-107)
[2019-11-28 07:22] LABS: PHOSPHORUS 3.8 mg/dL (2.5-4.9)
[2019-11-28 08:00] VITALS: BP 117/57
[2019-11-28] MEDS: CITRIC ACID/SODIUM CITRATE SOLN 30ML UDC PO SCH ×2 (08:13→13:00)
[2019-11-28] MEDS: ENOXAPARIN 40MG/0.4ML SYR SUBCUT SCH (08:13)
[2019-11-28] MEDS: ZINC SULFATE 220 MG ( 50 ) CAPSULE PO SCH (08:13)
[2019-11-28] MEDS: ASPIRIN 325MG EC TABLET PO SCH (08:14)
[2019-11-28] MEDS: FUROSEMIDE 20MG TABLET PO SCH (08:14)
[2019-11-28] MEDS: IBUPROFEN 200MG TABLET PO SCH ×2 (08:14→12:05)
[2019-11-28] MEDS: AMLODIPINE 5MG TABLET PO SCH (08:14)
[2019-11-28] MEDS: CARVEDILOL 12.5MG TABLET PO SCH (08:14)
[2019-11-28] MEDS: ASCORBIC ACID 500 MG TABLET PO SCH (08:14)
[2019-11-28] MEDS: DOCUSATE SODIUM 100MG CAPSULE PO SCH (08:15)
[2019-11-28 14:30] VITALS: BP 115/59
== END 2019-11-28 14:50 | disposition home health service (06) | DRG 91 ==
PROVIDERS: ADMIT Physical Medicine & Rehabilitation Spinal Cord Injury Medicine; ATTEND Internal Medicine
DX: G92 Toxic encephalopathy (principal); G82.50 Quadriplegia, unspecified; N17.0 Acute kidney failure with tubular necrosis; E44.1 Mild protein-calorie malnutrition; Z68.43 Body mass index [BMI] 50.0-59.9, adult; I13.0 Hypertensive heart and chronic kidney disease with heart failure and stage 1 through stage 4 chronic kidney disease, or unspecified chronic kidney disease; N18.4 Chronic kidney disease, stage 4 (severe); N39.0 Urinary tract infection, site not specified; J44.9 Chronic obstructive pulmonary disease, unspecified; D63.1 Anemia in chronic kidney disease; E11.22 Type 2 diabetes mellitus with diabetic chronic kidney disease; E66.01 Morbid (severe) obesity due to excess calories; E83.51 Hypocalcemia; F03.90 Unspecified dementia, unspecified severity, without behavioral disturbance, psychotic disturbance, mood disturbance, and anxiety; F80.9 Developmental disorder of speech and language, unspecified; I48.91 Unspecified atrial fibrillation; I50.9 Heart failure, unspecified; L89.90 Pressure ulcer of unspecified site, unspecified stage; R09.02 Hypoxemia; R13.10 Dysphagia, unspecified; Z79.4 Long term (current) use of insulin; Z87.440 Personal history of urinary (tract) infections; Z87.891 Personal history of nicotine dependence; Z90.49 Acquired absence of other specified parts of digestive tract; Z95.0 Presence of cardiac pacemaker
CPT/HCPCS: 36415; 36600; 71045; 73560; 80048; 80053; 80162; 82043; 82306; 82375; 82550; 82570; 82607; 82728; 82746; 82805; 82962; 83036; 83540; 83550; 83735; 83880; 84100; 84134; 84443; 84484; 85025; 92523; 92610; 93005; 93970; 94640; 97110; 97116; 97162; 97166; 97530; 97535; J1650; J1815; J1940; J2405; J7050; Q0163

== ENCOUNTER 2020-02-03 01:19 | Inpatient (IN) | payer MEDICARE, MEDICAID ==
[~2020-02-03] VITALS: Ht 170.2 cm; Wt 119.7 kg
[2020-02-03] MEDS ORDERED: PREDNISONE 20MG TABLET PO STA (01:26)
[2020-02-03] MEDS ORDERED: ACETAMINOPHEN 325MG TABLET PO STA (01:26)
[2020-02-03] MEDS ORDERED: AZITHROMYCIN 500 MG in DEXT 5% WATER 250 ML IV SCH (02:45)
[2020-02-03] MEDS ORDERED: CEFTRIAXONE 1 G PREMIX 50 ML IV ONE (02:45)
[2020-02-03 03:13] LABS: CHLORIDE 104 mEq/L (98-107)
[2020-02-03 03:16] LABS: D-DIMER 3.31 mg/L FEU (<0.50); INR 1.1; PARTIAL THROMBOPLASTIN TIME 30.7 sec (23.4-31.0); PROTHROMBIN TIME 11.4 sec (9.6-11.0)
[2020-02-03 03:25] LABS: CREATINE KINASE 40 IU/L (26-192)
[2020-02-03 03:35] LABS: HEMATOCRIT. 22.5 % (36.0-48.0); HEMOGLOBIN. 7.3 g/dL (12.0-16.0); MEAN CORPUSCULAR HEMOGLOBIN 30.4 pg (28.0-32.0); MEAN CORPUSCULAR VOLUME 93.6 fL (81.0-99.0); MEAN PLATELET VOLUME 8.7 fl (7.4-10.4); PLATELET 222 x1000/uL (130-400); RED BLOOD CELL COUNT 2.41 mill/uL (4.2-5.4); RED CELL DISTRIBUTION WIDTH 13.6 % (11.6-14.6)
[2020-02-03 04:08] LABS: CLARITY URINE CLOUDY (CLEAR); COLOR URINE YELLOW (YELLOW); KETONES URINE NEGATIVE (NEGATIVE); LEUKOCYTE ESTERASE URINE 2+ (NEGATIVE); NITRITE URINE NEGATIVE (NEGATIVE); OCCULT BLOOD URINE 1+ (NEGATIVE); PROTEIN URINE 2+ (NEGATIVE); SPECIFIC GRAVITY URINE 1.015 (1.005-1.030); UROBILINOGEN URINE 0.2 E.U./dL (0.2-1.0)
[2020-02-03] MEDS ORDERED: HYDROCODONE/ACETAMINOPHEN 5/325MG TABLET PO PRN (06:15)
[2020-02-03] MEDS ORDERED: ACETAMINOPHEN 325MG TABLET PO PRN (06:15)
[2020-02-03] MEDS ORDERED: GUAIFENESIN 200MG/10ML SUGAR FREE UDC PO PRN (06:15)
[2020-02-03] MEDS ORDERED: DOCUSATE SODIUM 100MG CAPSULE PO PRN (06:15)
[2020-02-03] MEDS ORDERED: MAGNESIUM/ALUMINUM HYDROXIDE/SIMETHICONE 30ML UDC PO PRN (06:15)
[2020-02-03] MEDS ORDERED: HYDROMORPHONE HCL/PF 2MG/ML CPJ IV PRN (06:15)
[2020-02-03] MEDS ORDERED: ONDANSETRON HCL 4MG/2ML INJ IV PRN (06:15)
[2020-02-03] MEDS ORDERED: CLONIDINE 0.1MG TABLET PO PRN (06:15)
[2020-02-03 06:32] LABS: TOTAL IRON BINDING CAPACITY 172 ug/dL (250-450)
[2020-02-03 07:33] LABS: PLATELET ESTIMATE NORMAL
[2020-02-03] MEDS: SODIUM CHLORIDE 0.45% 1,000 ML IV SCH (08:00)
[2020-02-03] MEDS: AMLODIPINE 10MG TABLET PO SCH (11:21)
[2020-02-03 11:41] VITALS: BP 168/81
[2020-02-03 12:00] VITALS: BP 147/61
[2020-02-03] MEDS ORDERED: METHYLPREDNISOLONE SOD SUCC 40 MG/ML VIAL IV SCH (12:00)
[2020-02-03 12:07] LABS: BG BASE EXCESS -2.6 mmol/L (-2.0-2.0); BG CARBOXYHEMOGLOBIN 0.2 % (0.5-1.5); BG DEOXYHEMOGLOBIN 0.6 % (0.0-5.0); BG FRACTION INSPIRED OXYGEN 100; BG HCO3 ACT 25.9 mmol/L (22.0-26.0); BG METHEMOGLOBIN 0.5 % (0.0-1.5); BG OXYGEN SATURATION 99.4 % (92.0-98.5); BG OXYHEMOGLOBIN 98.7 % (94.0-97.0); BG PCO2 68.3 mmHg (35.0-45.0); BG PH 7.196 (7.350-7.450); BG PO2 249.6 mmHg (75.0-100.0); BG SAMPLE SITE RIGHT RADIAL; BG TOTAL HEMOGLOBIN 8.1 g/dL (12.0-18.0); BG VENT MODE MASK - NRB
[2020-02-03] MEDS ORDERED: METHYLPREDNISOLONE SOD SUCC 125 MG/2 ML VIAL IV NR (12:30)
[2020-02-03] MEDS ORDERED: DEXTROSE 50% WATER 50ML SYRINGE IV PRN (14:00)
[2020-02-03 16:00] VITALS: BP 134/59
[2020-02-03] MEDS: BLOOD SUGAR DIAGNOSTIC STRIP TEST SCH ×2 (17:07→21:00)
[2020-02-03] MEDS: FUROSEMIDE 40MG/4ML VIAL IVP SCH (17:39)
[2020-02-03] MEDS: INSULIN LISPRO 100 UNITS/ML SUBCUT SCH ×2 (17:40→21:59)
[2020-02-03] MEDS: METHYLPREDNISOLONE SOD SUCC 40 MG/ML VIAL IV SCH (17:40)
[2020-02-03] MEDS: ALBUTEROL 6.7GM HFA INHALER ORI SCH ×2 (17:48→18:19)
[2020-02-03 20:00] VITALS: BP 111/54
[2020-02-03] MEDS: QUETIAPINE FUMARATE 25MG TABLET PO SCH (21:59)
[2020-02-03] MEDS: CARVEDILOL 12.5MG TABLET PO SCH (22:00)
[2020-02-04] VITALS (7 sets, daily range): BP systolic 81–141; BP diastolic 38–72
[2020-02-04] MEDS: SODIUM CHLORIDE 0.45% 1,000 ML IV SCH ×2 (01:30→16:46)
[2020-02-04] MEDS: ALBUTEROL 6.7GM HFA INHALER ORI SCH (05:38)
[2020-02-04] MEDS: FUROSEMIDE 40MG/4ML VIAL IVP SCH ×2 (06:15→16:45)
[2020-02-04] MEDS: BLOOD SUGAR DIAGNOSTIC STRIP TEST SCH ×4 (06:15→20:42)
[2020-02-04 06:21] LABS: CHLORIDE 104 mEq/L (98-107)
[2020-02-04] MEDS ORDERED: SODIUM POLYSTYRENE SULFONATE 15 G/60 ML BOT PO ONE (08:15)
[2020-02-04] MEDS: AMLODIPINE 10MG TABLET PO SCH (08:18)
[2020-02-04] MEDS: METHYLPREDNISOLONE SOD SUCC 40 MG/ML VIAL IV SCH ×2 (08:19→16:45)
[2020-02-04] MEDS: CARVEDILOL 12.5MG TABLET PO SCH ×2 (08:19→20:41)
[2020-02-04] MEDS: INSULIN LISPRO 100 UNITS/ML SUBCUT SCH ×4 (08:20→20:42)
[2020-02-04] MEDS: CEFTRIAXONE 1 G PREMIX 50 ML IV SCH (11:35)
[2020-02-04] MEDS: AZITHROMYCIN 500 MG in DEXT 5% WATER 250 ML IV SCH (11:36)
[2020-02-04] MEDS ORDERED: SODIUM POLYSTYRENE SULFONATE 15 G/60 ML BOT PO NR (12:45)
[2020-02-04] MEDS ORDERED: IPRATROPIUM/ALBUTEROL 0.5-3(2.5)MG/3ML NEB HHN PRN (15:00)
[2020-02-04 15:56] LABS: BG BASE EXCESS -5.3 mmol/L (-2.0-2.0); BG CARBOXYHEMOGLOBIN 0.2 % (0.5-1.5); BG DEOXYHEMOGLOBIN 6.3 % (0.0-5.0); BG FRACTION INSPIRED OXYGEN 56; BG HCO3 ACT 20.8 mmol/L (22.0-26.0); BG METHEMOGLOBIN 0.3 % (0.0-1.5); BG OXYGEN SATURATION 93.7 % (92.0-98.5); BG OXYHEMOGLOBIN 93.2 % (94.0-97.0); BG PCO2 43.3 mmHg (35.0-45.0); BG PH 7.299 (7.350-7.450); BG PO2 74.5 mmHg (75.0-100.0); BG SAMPLE SITE RIGHT BRACHIAL; BG TOTAL HEMOGLOBIN 8.4 g/dL (12.0-18.0); BG VENT MODE MASK - SIMPLE
[2020-02-04] MEDS: IPRATROPIUM/ALBUTEROL 0.5-3(2.5)MG/3ML NEB HHN SCH (20:20)
[2020-02-04] MEDS: QUETIAPINE FUMARATE 25MG TABLET PO SCH (20:41)
[2020-02-05] VITALS: BP 131/78
[2020-02-05] MEDS: IPRATROPIUM/ALBUTEROL 0.5-3(2.5)MG/3ML NEB HHN SCH ×2 (01:19→08:24)
[2020-02-05 04:00] VITALS: BP 135/61
[2020-02-05 06:27] LABS: PHOSPHORUS 5.2 mg/dL (2.5-4.9)
[2020-02-05] MEDS: FUROSEMIDE 40MG/4ML VIAL IVP SCH (06:36)
[2020-02-05 07:00] LABS: HEMATOCRIT. 24.4 % (36.0-48.0); HEMOGLOBIN. 7.8 g/dL (12.0-16.0); MEAN CORPUSCULAR HEMOGLOBIN 29.6 pg (28.0-32.0); MEAN CORPUSCULAR VOLUME 92.8 fL (81.0-99.0); MEAN PLATELET VOLUME 8.4 fl (7.4-10.4); PLATELET 287 x1000/uL (130-400); RED BLOOD CELL COUNT 2.63 mill/uL (4.2-5.4); RED CELL DISTRIBUTION WIDTH 13.9 % (11.6-14.6)
[2020-02-05] MEDS: BLOOD SUGAR DIAGNOSTIC STRIP TEST SCH ×2 (07:24→12:22)
[2020-02-05 08:00] VITALS: BP 129/65
[2020-02-05] MEDS: AZITHROMYCIN 500 MG in DEXT 5% WATER 250 ML IV SCH (08:03)
[2020-02-05] MEDS: CEFTRIAXONE 1 G PREMIX 50 ML IV SCH (08:03)
[2020-02-05] MEDS: INSULIN LISPRO 100 UNITS/ML SUBCUT SCH ×2 (08:03→12:22)
[2020-02-05] MEDS: METHYLPREDNISOLONE SOD SUCC 40 MG/ML VIAL IV SCH (08:04)
[2020-02-05] MEDS: CARVEDILOL 12.5MG TABLET PO SCH (08:04)
[2020-02-05] MEDS: AMLODIPINE 10MG TABLET PO SCH (08:04)
[2020-02-05] MEDS: SODIUM CHLORIDE 0.45% 1,000 ML IV SCH (08:08)
[2020-02-05 11:16] VITALS: BP 129/65
[2020-02-05] MEDS ORDERED: NITR-87 MT (11:16)
[2020-02-05 11:26] LABS: PLATELET ESTIMATE NORMAL
[2020-02-05 12:00] VITALS: BP 148/66
== END 2020-02-05 13:00 | disposition home or self-care (01) | DRG 871 ==
LOC: ER 01:19 → MICUSO 03:49 → 7WST 10:16 → 6WST 02-04 01:08
PROVIDERS: ADMIT Hospitalist; ATTEND Hospitalist
DX: A41.9 Sepsis, unspecified organism (principal); I50.33 Acute on chronic diastolic (congestive) heart failure; E43 Unspecified severe protein-calorie malnutrition; J96.01 Acute respiratory failure with hypoxia; J96.02 Acute respiratory failure with hypercapnia; J44.1 Chronic obstructive pulmonary disease with (acute) exacerbation; I13.0 Hypertensive heart and chronic kidney disease with heart failure and stage 1 through stage 4 chronic kidney disease, or unspecified chronic kidney disease; N39.0 Urinary tract infection, site not specified; N17.9 Acute kidney failure, unspecified; N18.4 Chronic kidney disease, stage 4 (severe); Z68.41 Body mass index [BMI] 40.0-44.9, adult; E87.4 Mixed disorder of acid-base balance; I48.91 Unspecified atrial fibrillation; E11.22 Type 2 diabetes mellitus with diabetic chronic kidney disease; E66.01 Morbid (severe) obesity due to excess calories; D50.9 Iron deficiency anemia, unspecified; Z20.828 Contact with and (suspected) exposure to other viral communicable diseases; Z99.81 Dependence on supplemental oxygen; K57.90 Diverticulosis of intestine, part unspecified, without perforation or abscess without bleeding; Z82.49 Family history of ischemic heart disease and other diseases of the circulatory system; Z87.891 Personal history of nicotine dependence; Z90.49 Acquired absence of other specified parts of digestive tract; Z95.810 Presence of automatic (implantable) cardiac defibrillator; Z91.011 Allergy to milk products; Z98.891 History of uterine scar from previous surgery; B96.1 Klebsiella pneumoniae [K. pneumoniae] as the cause of diseases classified elsewhere
CPT/HCPCS: 36415; 36600; 71045; 80048; 80053; 81003; 82375; 82550; 82728; 82805; 82962; 83036; 83540; 83550; 83605; 83615; 83735; 83880; 84100; 84145; 84484; 85025; 85379; 87077; 87186; 87804; 93005; 96365; 99291; J0456; J0696; J1815; J1940; J2920; J2930; J7060; J7512; U0003-CS

== ENCOUNTER 2020-04-27 21:01 | Inpatient (IN) | payer MEDICARE, MEDICAID ==
[~2020-04-27] VITALS: Ht 160 cm; Wt 122.5 kg
[~2020-04-27 21:01] MED LIST changes: +NITR-87 MT
[2020-04-28 00:27] LABS: BG BASE EXCESS -10.9 mmol/L (-2.0-2.0); BG CARBOXYHEMOGLOBIN 0.6 % (0.5-1.5); BG DEOXYHEMOGLOBIN 3.8 % (0.0-5.0); BG FRACTION INSPIRED OXYGEN 28; BG HCO3 ACT 17.9 mmol/L (22.0-26.0); BG METHEMOGLOBIN 0.1 % (0.0-1.5); BG OXYGEN SATURATION 96.2 % (92.0-98.5); BG OXYHEMOGLOBIN 95.5 % (94.0-97.0); BG PCO2 52.1 mmHg (35.0-45.0); BG PH 7.154 (7.350-7.450); BG PO2 101.7 mmHg (75.0-100.0); BG SAMPLE SITE LEFT RADIAL; BG TOTAL HEMOGLOBIN 12.9 g/dL (12.0-18.0); BG VENT MODE NASAL CANNULA
[2020-04-28] MEDS ORDERED: CEFTRIAXONE 1 G PREMIX 50 ML IV ONE (00:30)
[2020-04-28] MEDS ORDERED: AZITHROMYCIN 500 MG in DEXT 5% WATER 250 ML IV ONE (00:30)
[2020-04-28 00:54] LABS: CHLORIDE 108 mEq/L (98-107)
[2020-04-28 01:05] LABS: BASOPHILS % 0.4 % (0.0-2.0); EOSINOPHILS % 1.9 % (0.0-5.0); HEMATOCRIT. 25.3 % (36.0-48.0); HEMOGLOBIN. 8.1 g/dL (12.0-16.0); LYMPHOCYTES % 15.9 % (20.0-50.0); MEAN CORPUSCULAR HEMOGLOBIN 29.4 pg (28.0-32.0); MEAN CORPUSCULAR VOLUME 92.3 fL (81.0-99.0); MEAN PLATELET VOLUME 8.7 fl (7.4-10.4); MONOCYTES % 5.2 % (2.0-8.0); NEUTROPHILS % 76.6 % (40.0-76.0); PLATELET 195 x1000/uL (130-400); RED BLOOD CELL COUNT 2.75 mill/uL (4.2-5.4); RED CELL DISTRIBUTION WIDTH 15.8 % (11.6-14.6)
[2020-04-28] MEDS ORDERED: ALBUTEROL (0.083%) 2.5MG/3ML NEB HHN ONE (01:30)
[2020-04-28] MEDS ORDERED: INSULIN REGULAR (HUMULIN R) 300UNITS/3ML IV ONE (01:30)
[2020-04-28] MEDS ORDERED: SODIUM BICARBONATE 8.4% 1 MEQ/ML 50ML SYR IV ONE (01:30)
[2020-04-28] MEDS ORDERED: DEXTROSE 50% WATER 50ML SYRINGE IV ONE (01:30)
[2020-04-28] MEDS ORDERED: CALCIUM CHLORIDE 1GM/10ML SYR IV ONE (01:30)
[2020-04-28] MEDS ORDERED: METOCLOPRAMIDE HCL 10MG/2ML VIAL IV ONE (02:15)
[2020-04-28 03:53] LABS: INR 1.1; PROTHROMBIN TIME 11.5 sec (9.6-11.0)
[2020-04-28 08:53] LABS: CLARITY URINE CLOUDY (CLEAR); COLOR URINE YELLOW (YELLOW); KETONES URINE NEGATIVE (NEGATIVE); LEUKOCYTE ESTERASE URINE 3+ (NEGATIVE); NITRITE URINE NEGATIVE (NEGATIVE); OCCULT BLOOD URINE 1+ (NEGATIVE); PROTEIN URINE TRACE (NEGATIVE); SPECIFIC GRAVITY URINE 1.014 (1.005-1.030); UROBILINOGEN URINE 0.2 E.U./dL (0.2-1.0)
[2020-04-28 09:40] VITALS: BP_SYST 114; BP_SYST 137; BP_DIAS 69
[2020-04-28] MEDS ORDERED: SODIUM CHLORIDE 0.9% 1,000 ML IV ONE (11:00)
[2020-04-28] MEDS ORDERED: ONDANSETRON HCL 4MG/2ML INJ IV PRN (11:00)
[2020-04-28] MEDS ORDERED: SODIUM BICARBONATE 150 MEQ in DEXTROSE 5% WATER 1,000 ML IV SCH (11:00)
[2020-04-28] MEDS ORDERED: GUAIFENESIN 200MG/10ML SUGAR FREE UDC PO PRN (11:00)
[2020-04-28] MEDS ORDERED: DEXTROSE 50% WATER 50ML SYRINGE IV PRN (11:30)
[2020-04-28 12:00] VITALS: BP 130/61
[2020-04-28] MEDS: BLOOD SUGAR DIAGNOSTIC STRIP TEST SCH ×3 (12:40→21:39)
[2020-04-28] MEDS: INSULIN LISPRO 100 UNITS/ML SUBCUT SCH ×3 (12:49→21:00)
[2020-04-28] MEDS ORDERED: FUROSEMIDE 100MG/10ML VIAL IVP NR (13:00)
[2020-04-28] MEDS ORDERED: LIDOCAINE HCL 1% 20ML VIAL (Pyxis) INJ ONE (13:23)
[2020-04-28] MEDS ORDERED: HEPARIN 1000 UNITS/ML 10ML ONE (13:23)
[2020-04-28] MEDS ORDERED: SODIUM POLYSTYRENE SULFONATE 15 G/60 ML BOT PO NR (13:30)
[2020-04-28 14:02] LABS: BASOPHILS % 0.5 % (0.0-2.0); EOSINOPHILS % 2.3 % (0.0-5.0); HEMATOCRIT. 24.7 % (36.0-48.0); LYMPHOCYTES % 14.2 % (20.0-50.0); MEAN CORPUSCULAR HEMOGLOBIN 29.7 pg (28.0-32.0); MEAN CORPUSCULAR VOLUME 91.6 fL (81.0-99.0); MEAN PLATELET VOLUME 9.1 fl (7.4-10.4); MONOCYTES % 6.6 % (2.0-8.0); NEUTROPHILS % 76.4 % (40.0-76.0); PLATELET 186 x1000/uL (130-400); RED CELL DISTRIBUTION WIDTH 15.9 % (11.6-14.6)
[2020-04-28 14:27] LABS: FOLIC ACID (FOLATE) SERUM 5.5 ng/mL (>5.38)
[2020-04-28 16:00] VITALS: BP 128/79
[2020-04-28] MEDS ORDERED: BUME0.5T5 MT (17:09)
[2020-04-28] MEDS ORDERED: DULO20CA18 PO (17:09)
[2020-04-28] MEDS ORDERED: ESCI10TA61 PO (17:09)
[2020-04-28] MEDS ORDERED: METO25TA6 PO (17:09)
[2020-04-28 20:00] VITALS: BP 162/77
[2020-04-28] MEDS: ACETAMINOPHEN 325MG TABLET PO PRN (20:06)
[2020-04-28] MEDS: HEPARIN 5000 UNITS/ML VIAL SUBCUT SCH (21:00)
[2020-04-28] MEDS ORDERED: AZITHROMYCIN 500 MG in DEXT 5% WATER 250 ML IV SCH (21:00)
[2020-04-28] MEDS ORDERED: EPOETIN ALFA 10000UNITS/ML VIAL SUBCUT NR (21:00)
[2020-04-28] MEDS: CARVEDILOL 6.25 MG TABLET PO SCH (21:00)
[2020-04-28] MEDS ORDERED: CEFTRIAXONE 1,000 MG in DEXTROSE 5% WATER 50 ML IV SCH (21:00)
[2020-04-28 22:00] VITALS: BP 151/86
[2020-04-29] VITALS: BP 164/84
[2020-04-29] MEDS: ACETAMINOPHEN 325MG TABLET PO PRN (02:06)
[2020-04-29 04:00] VITALS: BP 138/65
[2020-04-29] MEDS: BLOOD SUGAR DIAGNOSTIC STRIP TEST SCH ×4 (06:45→21:06)
[2020-04-29 06:55] LABS: CHLORIDE 108 mEq/L (98-107)
[2020-04-29 07:05] LABS: HEPATITIS B SURFACE AB < 3.1 mIU/mL; PHOSPHORUS 4.8 mg/dL (2.5-4.9)
[2020-04-29 07:15] LABS: HEPATITIS B SURFACE ANTIGEN NEGATIVE
[2020-04-29] MEDS: INSULIN LISPRO 100 UNITS/ML SUBCUT SCH ×4 (07:15→21:00)
[2020-04-29 07:50] LABS: BASOPHILS % 0.5 % (0.0-2.0); EOSINOPHILS % 4.2 % (0.0-5.0); HEMATOCRIT. 22.9 % (36.0-48.0); HEMOGLOBIN. 7.3 g/dL (12.0-16.0); LYMPHOCYTES % 11.8 % (20.0-50.0); MEAN CORPUSCULAR HEMOGLOBIN 28.9 pg (28.0-32.0); MEAN CORPUSCULAR VOLUME 90.8 fL (81.0-99.0); MEAN PLATELET VOLUME 8.8 fl (7.4-10.4); MONOCYTES % 6.4 % (2.0-8.0); NEUTROPHILS % 77.1 % (40.0-76.0); PLATELET 170 x1000/uL (130-400); RED BLOOD CELL COUNT 2.52 mill/uL (4.2-5.4); RED CELL DISTRIBUTION WIDTH 15.8 % (11.6-14.6)
[2020-04-29 08:00] VITALS: BP 110/53
[2020-04-29] MEDS ORDERED: AZITHROMYCIN 500 MG in DEXT 5% WATER 250 ML IV SCH (08:00)
[2020-04-29] MEDS: CARVEDILOL 6.25 MG TABLET PO SCH (09:00)
[2020-04-29] MEDS: HEPARIN 5000 UNITS/ML VIAL SUBCUT SCH ×2 (09:00→21:05)
[2020-04-29] MEDS ORDERED: CEFTRIAXONE 1,000 MG in DEXTROSE 5% WATER 50 ML IV SCH (09:00)
[2020-04-29 12:00] VITALS: BP 146/72
[2020-04-29 16:00] VITALS: BP 129/65
[2020-04-29 20:00] VITALS: BP 133/63
[2020-04-29] MEDS ORDERED: IPRATROPIUM/ALBUTEROL 0.5-3(2.5)MG/3ML NEB HHN PRN (21:00)
[2020-04-29] MEDS: CARVEDILOL 12.5MG TABLET PO SCH (21:04)
[2020-04-29] MEDS: EPOETIN ALFA 10000UNITS/ML VIAL SUBCUT SCH (21:05)
[2020-04-30] VITALS (15 sets, daily range): BP systolic 129–160; BP diastolic 68–89
[2020-04-30] MEDS: IPRATROPIUM/ALBUTEROL 0.5-3(2.5)MG/3ML NEB HHN SCH ×3 (01:44→21:33)
[2020-04-30 04:07] LABS: HIV SCREEN 4G Non Reactive (Non Reactive)
[2020-04-30] MEDS: BLOOD SUGAR DIAGNOSTIC STRIP TEST SCH ×4 (06:13→21:00)
[2020-04-30] MEDS: INSULIN LISPRO 100 UNITS/ML SUBCUT SCH ×4 (06:26→21:00)
[2020-04-30 07:23] LABS: CHLORIDE 104 mEq/L (98-107)
[2020-04-30 07:25] LABS: BASOPHILS % 0.7 % (0.0-2.0); EOSINOPHILS % 4.5 % (0.0-5.0); HEMATOCRIT. 23.7 % (36.0-48.0); HEMOGLOBIN. 7.7 g/dL (12.0-16.0); LYMPHOCYTES % 14.3 % (20.0-50.0); MEAN CORPUSCULAR HEMOGLOBIN 29.2 pg (28.0-32.0); MEAN CORPUSCULAR VOLUME 89.6 fL (81.0-99.0); MEAN PLATELET VOLUME 8.6 fl (7.4-10.4); MONOCYTES % 6.8 % (2.0-8.0); NEUTROPHILS % 73.7 % (40.0-76.0); PLATELET 178 x1000/uL (130-400); RED BLOOD CELL COUNT 2.65 mill/uL (4.2-5.4); RED CELL DISTRIBUTION WIDTH 15.6 % (11.6-14.6)
[2020-04-30 07:30] LABS: PHOSPHORUS 3.1 mg/dL (2.5-4.9)
[2020-04-30] MEDS: HEPARIN 5000 UNITS/ML VIAL SUBCUT SCH ×2 (09:00→21:00)
[2020-04-30] MEDS: CARVEDILOL 12.5MG TABLET PO SCH ×2 (09:19→22:14)
[2020-04-30] MEDS ORDERED: HEPARIN 1000 UNITS/ML 10ML ONE ×2 (10:40→11:16)
[2020-04-30] MEDS ORDERED: SODIUM BICARBONATE 4% (2.4MEQ) 5ML VIAL IV ONE ×2 (10:40→11:16)
[2020-04-30] MEDS ORDERED: LIDOCAINE HCL 1% 20ML VIAL (Pyxis) INJ ONE ×2 (10:41→11:16)
[2020-04-30] MEDS ORDERED: CEFAZOLIN 1000MG PREMIX 50 ML IV NR (10:44)
[2020-04-30] MEDS ORDERED: CEFAZOLIN 1000MG PREMIX 50 ML IV ONE (10:44)
[2020-04-30] MEDS ORDERED: FENTANYL CITRATE/PF 50MCG/ML 2ML VIAL ONE (10:44)
[2020-04-30] MEDS ORDERED: FENTANYL CITRATE/PF 50MCG/ML 2ML VIAL IV NR (10:44)
[2020-04-30] MEDS ORDERED: CEFTRIAXONE 1,000 MG in DEXTROSE 5% WATER 50 ML IV SCH (14:00)
[2020-04-30] MEDS: LEVOFLOXACIN 500MG TABLET PO SCH (22:14)
[2020-05-01] MEDS: IPRATROPIUM/ALBUTEROL 0.5-3(2.5)MG/3ML NEB HHN SCH ×4 (01:08→21:21)
[2020-05-01 04:00] VITALS: BP 151/67
[2020-05-01] MEDS: BLOOD SUGAR DIAGNOSTIC STRIP TEST SCH ×4 (06:59→21:00)
[2020-05-01] MEDS: INSULIN LISPRO 100 UNITS/ML SUBCUT SCH ×4 (06:59→21:00)
[2020-05-01 08:00] VITALS: BP 147/64
[2020-05-01 08:00] LABS: CHLORIDE 104 mEq/L (98-107)
[2020-05-01 08:04] LABS: BASOPHILS % 0.7 % (0.0-2.0); HEMATOCRIT. 25.8 % (36.0-48.0); HEMOGLOBIN. 8.4 g/dL (12.0-16.0); LYMPHOCYTES % 11.1 % (20.0-50.0); MEAN CORPUSCULAR HEMOGLOBIN 29.3 pg (28.0-32.0); MEAN CORPUSCULAR VOLUME 90.4 fL (81.0-99.0); MEAN PLATELET VOLUME 8.2 fl (7.4-10.4); MONOCYTES % 7.2 % (2.0-8.0); PLATELET 194 x1000/uL (130-400); RED BLOOD CELL COUNT 2.86 mill/uL (4.2-5.4); RED CELL DISTRIBUTION WIDTH 16.1 % (11.6-14.6)
[2020-05-01 08:20] LABS: PHOSPHORUS 3.5 mg/dL (2.5-4.9)
[2020-05-01] MEDS: HEPARIN 5000 UNITS/ML VIAL SUBCUT SCH ×2 (09:00→21:26)
[2020-05-01] MEDS: CARVEDILOL 12.5MG TABLET PO SCH ×2 (09:00→21:26)
[2020-05-01 12:00] VITALS: BP 136/79
[2020-05-01 16:00] VITALS: BP 156/84
[2020-05-01 20:00] VITALS: BP 131/65
[2020-05-01] MEDS: EPOETIN ALFA 10000UNITS/ML VIAL SUBCUT SCH (21:26)
[2020-05-01] MEDS: ACETAMINOPHEN 325MG TABLET PO PRN (21:27)
[2020-05-02] VITALS: BP 135/60
[2020-05-02] MEDS: IPRATROPIUM/ALBUTEROL 0.5-3(2.5)MG/3ML NEB HHN SCH ×4 (01:48→20:17)
[2020-05-02 04:00] VITALS: BP 139/75
[2020-05-02] MEDS: BLOOD SUGAR DIAGNOSTIC STRIP TEST SCH ×4 (06:37→20:48)
[2020-05-02] MEDS: INSULIN LISPRO 100 UNITS/ML SUBCUT SCH ×4 (06:37→20:48)
[2020-05-02 06:46] LABS: BASOPHILS % 0.8 % (0.0-2.0); HEMATOCRIT. 23.2 % (36.0-48.0); HEMOGLOBIN. 7.5 g/dL (12.0-16.0); LYMPHOCYTES % 12.8 % (20.0-50.0); MEAN CORPUSCULAR HEMOGLOBIN 29.4 pg (28.0-32.0); MEAN PLATELET VOLUME 8.2 fl (7.4-10.4); NEUTROPHILS % 73.4 % (40.0-76.0); PLATELET 169 x1000/uL (130-400); RED BLOOD CELL COUNT 2.55 mill/uL (4.2-5.4); RED CELL DISTRIBUTION WIDTH 16.1 % (11.6-14.6)
[2020-05-02 06:54] LABS: CHLORIDE 111 mEq/L (98-107)
[2020-05-02 07:01] LABS: PHOSPHORUS 2.7 mg/dL (2.5-4.9)
[2020-05-02 08:00] VITALS: BP 148/70
[2020-05-02] MEDS: CARVEDILOL 12.5MG TABLET PO SCH ×2 (09:33→20:36)
[2020-05-02] MEDS: HEPARIN 5000 UNITS/ML VIAL SUBCUT SCH ×2 (09:33→20:37)
[2020-05-02 12:00] VITALS: BP 117/70
[2020-05-02 16:00] VITALS: BP 134/77
[2020-05-02 20:01] VITALS: BP 143/65
[2020-05-02] MEDS: LEVOFLOXACIN 500MG TABLET PO SCH (20:37)
[2020-05-03] VITALS: BP 153/67
[2020-05-03] MEDS: IPRATROPIUM/ALBUTEROL 0.5-3(2.5)MG/3ML NEB HHN SCH ×4 (02:05→13:28)
[2020-05-03 04:00] VITALS: BP 180/98
[2020-05-03] MEDS: BLOOD SUGAR DIAGNOSTIC STRIP TEST SCH ×3 (06:03→17:02)
[2020-05-03] MEDS: INSULIN LISPRO 100 UNITS/ML SUBCUT SCH ×3 (06:04→17:02)
[2020-05-03 08:00] VITALS: BP 143/79
[2020-05-03] MEDS: HEPARIN 5000 UNITS/ML VIAL SUBCUT SCH ×2 (08:37→08:44)
[2020-05-03] MEDS: CARVEDILOL 12.5MG TABLET PO SCH (10:01)
[2020-05-03 12:00] VITALS: BP 108/75
[2020-05-03] MEDS ORDERED: LEVO500T2 PO (13:11)
[2020-05-03] MEDS ORDERED: CARV12.545 PO (13:11)
[2020-05-03] MEDS ORDERED: CARVEDILOL 12.5MG TABLET PO SCH (13:15)
[2020-05-03 16:00] VITALS: BP 117/81
[2020-05-03 16:20] VITALS: BP 117/81
== END 2020-05-03 18:50 | disposition home health service (06) | DRG 871 ==
LOC: ER 21:01 → 7WST 04-28 03:33 → EDBEDREQ 04-28 03:37 → EDBEDREQTM 04-28 03:37 → EDBEDREQDT 04-28 03:37 → ENRESERV 04-28 07:51 → 5WST 04-28 21:48
PROVIDERS: ADMIT Family Medicine Adult Medicine; ATTEND Family Medicine Adult Medicine
PROC: 4B02XTZ Measurement of Cardiac Defibrillator, External Approach (ICD-10-PCS; principal; 2020-04-28)
PROC: 02HV33Z Insertion of Infusion Device into Superior Vena Cava, Percutaneous Approach (ICD-10-PCS; 2020-04-28)
PROC: B548ZZA Ultrasonography of Superior Vena Cava, Guidance (ICD-10-PCS; 2020-04-28)
PROC: 5A1D70Z Performance of Urinary Filtration, Intermittent, Less than 6 Hours Per Day (ICD-10-PCS; 2020-04-28)
PROC: 5A1D70Z Performance of Urinary Filtration, Intermittent, Less than 6 Hours Per Day (ICD-10-PCS; 2020-04-29)
PROC: 02PYX3Z Removal of Infusion Device from Great Vessel, External Approach (ICD-10-PCS; 2020-04-30)
PROC: 0JH63XZ Insertion of Tunneled Vascular Access Device into Chest Subcutaneous Tissue and Fascia, Percutaneous Approach (ICD-10-PCS; 2020-04-30)
PROC: 02HV33Z Insertion of Infusion Device into Superior Vena Cava, Percutaneous Approach (ICD-10-PCS; 2020-04-30)
PROC: B518ZZA Fluoroscopy of Superior Vena Cava, Guidance (ICD-10-PCS; 2020-04-30)
PROC: B548ZZA Ultrasonography of Superior Vena Cava, Guidance (ICD-10-PCS; 2020-04-30)
PROC: 5A1D70Z Performance of Urinary Filtration, Intermittent, Less than 6 Hours Per Day (ICD-10-PCS; 2020-05-01)
PROC: 5A1D70Z Performance of Urinary Filtration, Intermittent, Less than 6 Hours Per Day (ICD-10-PCS; 2020-05-03)
DX: A41.59 Other Gram-negative sepsis (principal); G93.41 Metabolic encephalopathy; J96.22 Acute and chronic respiratory failure with hypercapnia; J96.21 Acute and chronic respiratory failure with hypoxia; J18.9 Pneumonia, unspecified organism; I50.33 Acute on chronic diastolic (congestive) heart failure; N18.6 End stage renal disease; E44.1 Mild protein-calorie malnutrition; E66.2 Morbid (severe) obesity with alveolar hypoventilation; Z68.42 Body mass index [BMI] 45.0-49.9, adult; E87.2 Acidosis; I13.2 Hypertensive heart and chronic kidney disease with heart failure and with stage 5 chronic kidney disease, or end stage renal disease; I42.9 Cardiomyopathy, unspecified; N17.9 Acute kidney failure, unspecified; N39.0 Urinary tract infection, site not specified; B96.89 Other specified bacterial agents as the cause of diseases classified elsewhere; D63.1 Anemia in chronic kidney disease; E11.22 Type 2 diabetes mellitus with diabetic chronic kidney disease; E87.5 Hyperkalemia; I27.20 Pulmonary hypertension, unspecified; I48.0 Paroxysmal atrial fibrillation; K57.90 Diverticulosis of intestine, part unspecified, without perforation or abscess without bleeding; F14.10 Cocaine abuse, uncomplicated; J44.9 Chronic obstructive pulmonary disease, unspecified; Z20.828 Contact with and (suspected) exposure to other viral communicable diseases; Z95.810 Presence of automatic (implantable) cardiac defibrillator; Z99.81 Dependence on supplemental oxygen; Z90.49 Acquired absence of other specified parts of digestive tract; Z87.891 Personal history of nicotine dependence; Z91.011 Allergy to milk products; Z79.2 Long term (current) use of antibiotics; Z79.82 Long term (current) use of aspirin; Z79.899 Other long term (current) drug therapy; Z79.84 Long term (current) use of oral hypoglycemic drugs; Z98.891 History of uterine scar from previous surgery; Z83.3 Family history of diabetes mellitus; Z82.49 Family history of ischemic heart disease and other diseases of the circulatory system; Z79.4 Long term (current) use of insulin; Z79.51 Long term (current) use of inhaled steroids
CPT/HCPCS: 36415; 36558; 36589; 36600; 71045; 76937; 77001; 80048; 80053; 80162; 81003; 82270; 82375; 82607; 82728; 82746; 82805; 82962; 83036; 83540; 83550; 83605; 83735; 83880; 84100; 84145; 84484; 85025; 85044; 86705; 86706; 86803; 87077; 87186; 87340; 87389; 87635; 93005; 93306; 93970; 94003; 94640; 97162; 97166; 97530; 97535; 99152; 99153; 99291; C1750; C1752; C1769; C1887; J0456; J0690; J0696; J0885; J1644; J1815; J1940; J2765; J3010; J3490; J7060; L8514; G0500